=== PATIENT | male | born 1960 | race Caucasian/White ===

== ENCOUNTER 2022-11-03 11:29 | Emergency (ER) | payer MEDICARE, OTHER ==
[~2022-11-03] VITALS: Ht 152.4 cm; Wt 38.0 kg
[2022-11-03 11:37] VITALS: BP 108/87
[2022-11-03] MEDS ORDERED: ACET-1 PO (13:04)
--- NOTE | 2022-11-03 13:11 | NUR ---
Patient is at baseline, non-verbal, caregiver seeking to refill Rx for patient.
== END 2022-11-03 13:29 | disposition home or self-care (01) ==
LOC: ER 11:30
DX: R56.9 Unspecified convulsions (principal); Z76.0 Encounter for issue of repeat prescription
CPT/HCPCS: 99281

== ENCOUNTER 2022-12-19 19:36 | Emergency (ER) | payer MEDICARE, MEDICAID ==
[~2022-12-19] VITALS: Ht 167.6 cm; Wt 50.0 kg
[~2022-12-19 19:36] MED LIST: ACET-1 PO
[2022-12-19 20:07] LABS: BASOPHILS % (AUTO) 0.2 % (0-1); EOSINOPHILS # (AUTO) 0.2 X10'3 (0-0.9); EOSINOPHILS % (AUTO) 2.2 % (0-6); HEMOGLOBIN 13.6 g/dl (14.0-17.9); LYMPHOCYTES # (AUTO) 1.3 X10'3 (1.1-4.8); LYMPHOCYTES % (AUTO) 16.1 % (21-51); MEAN CORPUSCULAR HEMOGLOBIN 29.9 PG (27.0-31.0); MEAN CORPUSCULAR HGB CONC 33.2 g/dL (33.0-36.5); MEAN CORPUSCULAR VOLUME 90.2 FL (78-98); MEAN PLATELET VOLUME 9.8 FL (7.4-10.4); MONOCYTES # (AUTO) 1.1 X10'3 (0-0.9); MONOCYTES % (AUTO) 14.1 % (2-12); NEUTROPHILS # (AUTO) 5.4 X10'3 (1.8-7.7); NEUTROPHILS % (AUTO) 67.4 % (42-75); PLATELET COUNT 242 X10'3 (140-440); RED BLOOD COUNT 4.55 X10'6 (4.70-6.10); RED CELL DISTRIBUTION WIDTH 13.9 % (11.5-14.5); WHITE BLOOD COUNT 8.1 X10'3 (4.5-11.0)
[2022-12-19 20:28] LABS: ALANINE AMINOTRANSFERASE 24 U/L (12-78); ALBUMIN 3.7 G/DL (3.4-5.0); ALBUMIN/GLOBULIN RATIO 0.8 (1.1-1.5); ALKALINE PHOSPHATASE 82 IU/L (46-116); ANION GAP 8 (8-16); ASPARTATE AMINO TRANSFERASE 20 U/L (10-37); BILIRUBIN,TOTAL 0.2 MG/DL (0.1-1.0); BLOOD UREA NITROGEN 17 MG/DL (7-18); BUN/CREATININE RATIO 25.8 (5.4-32.0); CALCIUM 9.5 MG/DL (8.5-10.1); CHLORIDE 103 MMOL/L (99-107); CREATININE 0.66 MG/DL (0.60-1.10); GLUCOSE 144 MG/DL (70-104); POTASSIUM 4.1 MMOL/L (3.5-5.1); SODIUM 143 MMOL/L (135-145); TOTAL CARBON DIOXIDE 32.5 MMOL/L (24-32); TOTAL PROTEIN 8.3 G/DL (6.4-8.2); eGFR > 90 ML/MIN
[2022-12-19 21:52] VITALS: BP 107/78
== END 2022-12-19 22:40 | disposition home or self-care (01) ==
LOC: ER 19:36
DX: Z00.00 Encounter for general adult medical examination without abnormal findings (principal); Z79.899 Other long term (current) drug therapy
CPT/HCPCS: 36415; 71045; 80053; 83605; 83880; 84484; 85025; 87040; 93005; 99285; A4615

== ENCOUNTER 2023-08-09 09:54 | Emergency (ER) | payer MEDICARE, MEDICAID ==
[~2023-08-09] VITALS: Ht 162.6 cm; Wt 42.0 kg
[~2023-08-09 09:54] MED LIST changes: -ACET-1 PO; +APIX5TAB3 PO; +BACL10TA2 PO; +LEVE100S PO; +LEVO750T68 PO; +METR-159 PO; +MIRT7.5T11 PO; +POLY119P2 PO; +POTA10CA85 PO
[2023-08-09] MEDS ORDERED: normal saline 1000ML IV soln IV ONE (10:10)
[2023-08-09 10:55] LABS: BASOPHILS % (AUTO) 0.4 % (0-1); EOSINOPHILS # (AUTO) 0.2 X10'3 (0-0.9); EOSINOPHILS % (AUTO) 1.9 % (0-6); HEMATOCRIT 40.1 % (42.0-52.0); HEMOGLOBIN 13.3 g/dl (14.0-17.9); LYMPHOCYTES # (AUTO) 1.3 X10'3 (1.1-4.8); LYMPHOCYTES % (AUTO) 14.6 % (21-51); MEAN CORPUSCULAR HEMOGLOBIN 30.4 PG (27.0-31.0); MEAN CORPUSCULAR HGB CONC 33.3 g/dL (33.0-36.5); MEAN CORPUSCULAR VOLUME 91.5 FL (78-98); MEAN PLATELET VOLUME 10.6 FL (7.4-10.4); MONOCYTES # (AUTO) 1.1 X10'3 (0-0.9); MONOCYTES % (AUTO) 12.1 % (2-12); NEUTROPHILS # (AUTO) 6.6 X10'3 (1.8-7.7); PLATELET COUNT 181 X10'3 (140-440); RED BLOOD COUNT 4.38 X10'6 (4.70-6.10); RED CELL DISTRIBUTION WIDTH 13.8 % (11.5-14.5); WHITE BLOOD COUNT 9.2 X10'3 (4.5-11.0)
[2023-08-09 11:17] LABS: ALANINE AMINOTRANSFERASE 22 U/L (12-78); ALBUMIN 3.3 G/DL (3.4-5.0); ALBUMIN/GLOBULIN RATIO 0.7 (1.1-1.5); ALKALINE PHOSPHATASE 66 IU/L (46-116); ASPARTATE AMINO TRANSFERASE 28 U/L (10-37); BILIRUBIN,TOTAL 0.3 MG/DL (0.1-1.0); CALCIUM 9.7 MG/DL (8.5-10.1); MAGNESIUM 2.4 MG/DL (1.5-2.4); TOTAL CARBON DIOXIDE 31.1 MMOL/L (24-32); TOTAL PROTEIN 7.8 G/DL (6.4-8.2)
[2023-08-09 11:24] LABS: ANION GAP 7 (8-16); BLOOD UREA NITROGEN 7 MG/DL (7-18); CHLORIDE 104 MMOL/L (99-107); CREATININE 0.54 MG/DL (0.60-1.10); GLUCOSE 94 MG/DL (70-104); POTASSIUM 3.6 MMOL/L (3.5-5.1); SODIUM 142 MMOL/L (135-145); eCRCL 86 ML/MIN; eGFR > 90 ML/MIN
--- NOTE | 2023-08-09 11:51 | NUR ---
ns #1 liter completed infusion #2 infusing via pressure bag
[2023-08-09] MEDS ORDERED: metroNIDAZOLE-Flagyl 500mg/NS 100 ML IV STA ×2 (12:07→13:33)
[2023-08-09] MEDS ORDERED: levoFLOXACIN-Levaquin 500mg/D5 100 ML IV ONE (12:10)
[2023-08-09 15:13] VITALS: BP 148/65; PULSE 78; RESP 19; TEMP 99; O2SAT 96
== END 2023-08-09 14:45 | disposition home or self-care (01) ==
LOC: ER 09:54
DX: J69.0 Pneumonitis due to inhalation of food and vomit (principal); R09.02 Hypoxemia; Z79.899 Other long term (current) drug therapy; Z79.1 Long term (current) use of non-steroidal anti-inflammatories (NSAID)
CPT/HCPCS: 36415; 71045; 80053; 83605; 83735; 84145; 85025; 87040; 93005; 96365; 96367; 99285; J1956; J3490; J7030

== ENCOUNTER 2023-10-23 15:16 | Emergency (ER) | payer MEDICARE, MEDICAID ==
[~2023-10-23] VITALS: Ht 175.3 cm; Wt 41.8 kg
[~2023-10-23 15:16] MED LIST changes: -LEVO750T68 PO; -METR-159 PO
[2023-10-23 16:07] VITALS: RESP 19
[2023-10-23 16:11] LABS: BASOPHILS % (AUTO) 0.2 % (0-1); EOSINOPHILS # (AUTO) 0.7 X10'3 (0-0.9); EOSINOPHILS % (AUTO) 6.1 % (0-6); HEMOGLOBIN 13.6 g/dl (14.0-17.9); LYMPHOCYTES # (AUTO) 1.6 X10'3 (1.1-4.8); LYMPHOCYTES % (AUTO) 14.1 % (21-51); MEAN CORPUSCULAR HEMOGLOBIN 30.4 PG (27.0-31.0); MEAN CORPUSCULAR HGB CONC 33.2 g/dL (33.0-36.5); MEAN CORPUSCULAR VOLUME 91.7 FL (78-98); MEAN PLATELET VOLUME 10.4 FL (7.4-10.4); MONOCYTES # (AUTO) 1.2 X10'3 (0-0.9); MONOCYTES % (AUTO) 10.7 % (2-12); NEUTROPHILS # (AUTO) 7.6 X10'3 (1.8-7.7); NEUTROPHILS % (AUTO) 68.9 % (42-75); PLATELET COUNT 192 X10'3 (140-440); RED BLOOD COUNT 4.47 X10'6 (4.70-6.10); RED CELL DISTRIBUTION WIDTH 13.9 % (11.5-14.5)
[2023-10-23 16:32] LABS: ALBUMIN 3.4 G/DL (3.4-5.0); ANION GAP 7 (8-16); BILIRUBIN,TOTAL 0.2 MG/DL (0.1-1.0); BLOOD UREA NITROGEN 15 MG/DL (7-18); CHLORIDE 105 MMOL/L (99-107); GLUCOSE 140 MG/DL (70-104); POTASSIUM 3.8 MMOL/L (3.5-5.1); PRO BRAIN NATRIURETIC PEPTIDE 50 PG/ML (0-125); SODIUM 142 MMOL/L (135-145); TOTAL PROTEIN 7.9 G/DL (6.4-8.2); eCRCL 93 ML/MIN; eGFR > 90 ML/MIN
[2023-10-23 16:33] LABS: ALANINE AMINOTRANSFERASE 26 U/L (12-78); ALBUMIN/GLOBULIN RATIO 0.8 (1.1-1.5); ALKALINE PHOSPHATASE 89 IU/L (46-116); ASPARTATE AMINO TRANSFERASE 20 U/L (10-37)
[2023-10-23] MEDS ORDERED: CefTRIAXone 1000mg IM Kit (w/lidocaine diluent) IM STA (17:58)
[2023-10-23] MEDS ORDERED: AZIT-164 PO (18:23)
[2023-10-23 18:37] VITALS: BP 116/84; PULSE 89
[2023-10-23 19:01] VITALS: TEMP 98.7; O2SAT 90
== END 2023-10-23 21:46 | disposition home or self-care (01) ==
LOC: ER 15:17
DX: J18.9 Pneumonia, unspecified organism (principal); Z98.890 Other specified postprocedural states; Z79.2 Long term (current) use of antibiotics; Z79.899 Other long term (current) drug therapy; Z74.01 Bed confinement status
CPT/HCPCS: 36415; 71045; 80053; 83605; 83880; 85025; 87040; 96372; 99284; J0696

== ENCOUNTER 2024-02-11 16:16 | Emergency (ER) | payer MEDICARE, MEDICAID ==
[~2024-02-11] VITALS: Ht 162.6 cm; Wt 45.5 kg
[2024-02-11] MEDS: ipratropium/albuterol 3ml nebule NEB STA (17:09)
[2024-02-11] MEDS: ipratropium/albuterol 3ml nebule NEB ONE (17:13)
[2024-02-11 17:21] LABS: BASOPHILS # (AUTO) 0.1 X10'3 (0-0.2); BASOPHILS % (AUTO) 1.2 % (0-1); EOSINOPHILS # (AUTO) 0.5 X10'3 (0-0.9); EOSINOPHILS % (AUTO) 11.5 % (0-6); HEMATOCRIT 42.2 % (42.0-52.0); HEMOGLOBIN 14.1 g/dl (14.0-17.9); LYMPHOCYTES # (AUTO) 1.3 X10'3 (1.1-4.8); LYMPHOCYTES % (AUTO) 30.1 % (21-51); MEAN CORPUSCULAR HEMOGLOBIN 30.8 PG (27.0-31.0); MEAN CORPUSCULAR HGB CONC 33.5 g/dL (33.0-36.5); MEAN PLATELET VOLUME 10.6 FL (7.4-10.4); MONOCYTES # (AUTO) 0.7 X10'3 (0-0.9); MONOCYTES % (AUTO) 16.5 % (2-12); NEUTROPHILS # (AUTO) 1.8 X10'3 (1.8-7.7); NEUTROPHILS % (AUTO) 40.7 % (42-75); PLATELET COUNT 159 X10'3 (140-440); RED BLOOD COUNT 4.58 X10'6 (4.70-6.10); RED CELL DISTRIBUTION WIDTH 13.6 % (11.5-14.5); WHITE BLOOD COUNT 4.4 X10'3 (4.5-11.0)
[2024-02-11] MEDS: methylPREDNISolone sod succ 125mg/2ml vial IV ONE (17:23)
[2024-02-11 17:32] LABS: APTT 27 SECONDS (22-32); PROTHROMBIN TIME 10.5 SECONDS (9.0-12.0)
[2024-02-11 17:40] VITALS: PULSE 98; RESP 20
[2024-02-11 17:41] LABS: ALBUMIN 3.6 G/DL (3.4-5.0); ANION GAP 9 (8-16); BLOOD UREA NITROGEN 13 MG/DL (7-18); BUN/CREATININE RATIO 20.6 (10.0-20.0); CALCIUM 9.2 MG/DL (8.5-10.1); CHLORIDE 105 MMOL/L (99-107); CREATININE 0.63 MG/DL (0.60-1.10); GLUCOSE 133 MG/DL (70-104); PRO BRAIN NATRIURETIC PEPTIDE 56 PG/ML (0-125); SODIUM 143 MMOL/L (135-145); TOTAL CARBON DIOXIDE 29.5 MMOL/L (24-32); eCRCL 79 ML/MIN; eGFR > 90 ML/MIN
[2024-02-11 17:46] LABS: PLATELET ESTIMATE NORMAL; STOMATOCYTES FEW; TOTAL CELLS COUNTED 100
[2024-02-11 17:47] LABS: BURR CELLS FEW
[2024-02-12] MEDS ORDERED: ALBU8HFA INH (02:27)
[2024-02-12] MEDS ORDERED: PRED15SO71 PO (02:27)
[2024-02-12] MEDS ORDERED: AMOX400S76 PO (02:27)
[2024-02-12] MEDS: amox tr/potassium clavulanate 500mg/125mg TAB PO SCH ×2 (02:32→02:43)
[2024-02-12] MEDS: methylPREDNISolone sod succ 125mg/2ml vial IV ONE (02:46)
[2024-02-12 03:09] VITALS: BP 128/79; PULSE 81; RESP 15; TEMP 97.8; O2SAT 96
[2024-02-12] MEDS ORDERED: FLUT15.87 NAS (11:43)
[2024-02-12] MEDS ORDERED: DIPH25TA62 PO (11:48)
[2024-02-14] MEDS ORDERED: AMOX250S62 PO (11:21)
== END 2024-02-12 03:30 | disposition home or self-care (01) ==
LOC: ER 16:16
DX: J98.01 Acute bronchospasm (principal); R05.9 Cough, unspecified; Z79.2 Long term (current) use of antibiotics; Z79.1 Long term (current) use of non-steroidal anti-inflammatories (NSAID); Z79.899 Other long term (current) drug therapy
CPT/HCPCS: 36415; 71045; 80048; 83880; 84484; 85007; 85025; 85610; 85730; 87040; 87077; 87186; 93005; 94640; 94760; 96374; 96376; 99285; C1758; J2930

== ENCOUNTER 2024-02-14 20:51 | Inpatient (IN) | payer MEDICARE, MEDICAID ==
[~2024-02-14] VITALS: Ht 167.6 cm; Wt 42.9 kg
[~2024-02-14 20:51] MED LIST changes: +AMOX250S62 PO; +DIPH25TA62 PO; +FLUT15.87 NAS
[2024-02-14 21:32] LABS: BASOPHILS % (AUTO) 0.2 % (0-1); EOSINOPHILS % (AUTO) 0.2 % (0-6); HEMOGLOBIN 13.4 g/dl (14.0-17.9); LYMPHOCYTES # (AUTO) 0.8 X10'3 (1.1-4.8); LYMPHOCYTES % (AUTO) 4.9 % (21-51); MEAN CORPUSCULAR HEMOGLOBIN 30.4 PG (27.0-31.0); MEAN CORPUSCULAR HGB CONC 33.5 g/dL (33.0-36.5); MEAN CORPUSCULAR VOLUME 90.7 FL (78-98); MEAN PLATELET VOLUME 10.8 FL (7.4-10.4); MONOCYTES # (AUTO) 1.4 X10'3 (0-0.9); MONOCYTES % (AUTO) 8.5 % (2-12); NEUTROPHILS # (AUTO) 14.5 X10'3 (1.8-7.7); NEUTROPHILS % (AUTO) 86.2 % (42-75); PLATELET COUNT 173 X10'3 (140-440); RED BLOOD COUNT 4.41 X10'6 (4.70-6.10); RED CELL DISTRIBUTION WIDTH 13.8 % (11.5-14.5); WHITE BLOOD COUNT 16.8 X10'3 (4.5-11.0)
[2024-02-14] MEDS: normal saline 1000ML IV soln IV ONE (21:35)
[2024-02-14] MEDS: ondansetron/PF 4mg/2ml inj IV ONE (21:52)
[2024-02-14] MEDS: levoFLOXACIN-Levaquin 750MG/D5 150 ML IV ONE (21:52)
[2024-02-14] MEDS ORDERED: iohexol 350MG/ML 100ml bottle IV ONE (22:17)
[2024-02-14] MEDS: LORazepam 2 mg/ml vial IV ONE (22:43)
[2024-02-14 23:46] LABS: ALBUMIN 3.6 G/DL (3.4-5.0); ANION GAP 9 (8-16); BLOOD UREA NITROGEN 12 MG/DL (7-18); BUN/CREATININE RATIO 17.1 (10.0-20.0); CHLORIDE 106 MMOL/L (99-107); GLUCOSE 238 MG/DL (70-104); LARGE PLATELETS FEW; MAGNESIUM 1.8 MG/DL (1.5-2.4); PLATELET ESTIMATE NORMAL; POTASSIUM 3.5 MMOL/L (3.5-5.1); SODIUM 144 MMOL/L (135-145); TOTAL CARBON DIOXIDE 28.7 MMOL/L (24-32); eCRCL 67 ML/MIN; eGFR > 90 ML/MIN
[2024-02-15] MEDS: piperacillin/tazo 3.375gm/50ml 50 ML IV ONE (00:09)
[2024-02-15] MEDS: vancomycin/NS 1 GM ADD-VANTAGE 250 ML X 1 DOSE IV ONE (00:09)
[2024-02-15] MEDS ORDERED: ALB0.5UD (03:12)
[2024-02-15] MEDS ORDERED: PRED15SO6 PO (03:12)
[2024-02-15] MEDS ORDERED: potassium Cl 40MEQ/1/2NS 520ml 520 ML IV PRN (04:05)
[2024-02-15] MEDS ORDERED: magnesium Cl slow-release 64mg tablet PO PRN (04:05)
[2024-02-15] MEDS ORDERED: magnesium 2GM in 50ml NS 50 ML IV PRN (04:05)
[2024-02-15] MEDS ORDERED: ondansetron/PF 4mg/2ml inj IV PRN (04:05)
[2024-02-15] MEDS ORDERED: mag hydrox/Alum hydrox/simeth 30ml oral suspension PO PRN (04:05)
[2024-02-15] MEDS ORDERED: acetaminophen 325mg tablet PO PRN (04:05)
[2024-02-15] MEDS ORDERED: potassium Cl 20 mEq SR tablet PO PRN ×2 (04:05)
[2024-02-15] MEDS ORDERED: magnesium 4gm in 100ml NS 100 ML IV PRN (04:05)
[2024-02-15] MEDS ORDERED: magnesium hydroxide 30ml (MOM) UD suspension PO PRN (04:05)
[2024-02-15 06:24] LABS: BILIRUBIN,URINE NEGATIVE (Neg); CLARITY,URINE CLEAR (Clear); COLOR,URINE STRAW (Yellow); GLUCOSE, URINE NEGATIVE (Neg); KETONES,URINE NEGATIVE (Neg); LEUKOCYTE ESTERASE ,URINE NEGATIVE (Neg); NITRITES, URINE NEGATIVE (Neg); OCCULT BLOOD,URINE TRACE-INTACT (Neg); PH,URINE 7.5 (4.8-8.0); PROTEIN,URINE NEGATIVE (Neg); UROBILINOGEN,URINE 0.2 E.U/dL (0.2-1.0)
[2024-02-15 06:29] LABS: UA COLLECTION TYPE URINAL
[2024-02-15 06:30] LABS: WBC,URINE 0-4 /HPF (0-4)
[2024-02-15 06:31] LABS: BACTERIA,URINE FEW /HPF (Neg); MUCUS STRANDS NONE SEEN /LPF (Neg); SQUAMOUS EPITHELIAL CELL,UR NONE SEEN /LPF (FEW)
[2024-02-15] MEDS: K and/or MAG REPLACEMENT MC SCH (07:05)
[2024-02-15] MEDS: CefTRIAXone/D5W-Rocephin 1gm 50 ML IV SCH (07:15)
[2024-02-15] MEDS: potassium chloride 10mEq ER tablet PO SCH (08:00)
[2024-02-15] MEDS: apixaban 5mg tablet PO SCH (08:00)
[2024-02-15] MEDS: docusate sod 100mg capsule PO SCH (08:00)
[2024-02-15] MEDS: levetiracetam 100mg/ml oral solution 5ml UD cup PO SCH (08:00)
[2024-02-15] MEDS: baclofen 10mg tablet PO SCH (08:00)
[2024-02-15] MEDS: fluticasone nasal spray 16GM bottle NS SCH (08:00)
[2024-02-15] MEDS: polyethylene glycol 3350 17gm powd pack PO SCH (08:00)
[2024-02-15] MEDS: azithromycin/NS 500mg/250ml 250 ML IV SCH (08:50)
[2024-02-15 16:43] VITALS: BP 151/87; PULSE 77; RESP 18; TEMP 97.9; O2SAT 91
[2024-02-15 17:29] VITALS: RESP 18
[2024-02-15 19:19] VITALS: RESP 20
[2024-02-15 19:27] VITALS: O2SAT 91
[2024-02-15] MEDS: mirtazapine 15mg tablet PO SCH (20:18)
[2024-02-16] VITALS (7 sets, daily range): BP systolic 101–128; BP diastolic 60–79; PULSE 75–98; RESP 14–18; TEMP 97.4–98.4; O2SAT 90–98
[2024-02-16] MEDS: morphine 2 MG/ML inj. syringe IV PRN (01:37)
[2024-02-16 06:35] LABS: BASOPHILS % (AUTO) 0.7 % (0-1); EOSINOPHILS # (AUTO) 0.8 X10'3 (0-0.9); EOSINOPHILS % (AUTO) 12.1 % (0-6); HEMATOCRIT 36.7 % (42.0-52.0); HEMOGLOBIN 12.3 g/dl (14.0-17.9); LYMPHOCYTES % (AUTO) 30.1 % (21-51); MEAN CORPUSCULAR HEMOGLOBIN 30.7 PG (27.0-31.0); MEAN CORPUSCULAR HGB CONC 33.5 g/dL (33.0-36.5); MEAN CORPUSCULAR VOLUME 91.6 FL (78-98); MEAN PLATELET VOLUME 10.2 FL (7.4-10.4); MONOCYTES # (AUTO) 0.9 X10'3 (0-0.9); MONOCYTES % (AUTO) 12.8 % (2-12); NEUTROPHILS % (AUTO) 44.3 % (42-75); PLATELET COUNT 152 X10'3 (140-440); RED BLOOD COUNT 4.01 X10'6 (4.70-6.10); RED CELL DISTRIBUTION WIDTH 13.5 % (11.5-14.5); WHITE BLOOD COUNT 6.7 X10'3 (4.5-11.0)
[2024-02-16 06:51] LABS: ALANINE AMINOTRANSFERASE 19 U/L (12-78); ALBUMIN 2.9 G/DL (3.4-5.0); ALBUMIN/GLOBULIN RATIO 0.7 (1.1-1.5); ALKALINE PHOSPHATASE 51 IU/L (46-116); ANION GAP 4 (8-16); ASPARTATE AMINO TRANSFERASE 16 U/L (10-37); BILIRUBIN,TOTAL 0.3 MG/DL (0.1-1.0); BLOOD UREA NITROGEN 16 MG/DL (7-18); BUN/CREATININE RATIO 31.4 (10.0-20.0); CALCIUM 8.8 MG/DL (8.5-10.1); CHLORIDE 107 MMOL/L (99-107); CREATININE 0.51 MG/DL (0.60-1.10); GLUCOSE 86 MG/DL (70-104); MAGNESIUM 2.1 MG/DL (1.5-2.4); POTASSIUM 3.8 MMOL/L (3.5-5.1); SODIUM 144 MMOL/L (135-145); TOTAL PROTEIN 6.8 G/DL (6.4-8.2); eCRCL 92 ML/MIN; eGFR > 90 ML/MIN
[2024-02-16] MEDS: lactose-reduced food (Ensure Enlive) - 237ml bottle PO SCH (13:05)
[2024-02-16 23:33] LABS: OCCULT BLOOD STOOL NEGATIVE (Neg)
[2024-02-17 06:30] VITALS: BP 135/75; PULSE 77; RESP 16; TEMP 98.6; O2SAT 90
[2024-02-17] MEDS: docusate sodium 100mg/10ml UD cup PO SCH (07:07)
[2024-02-17 07:33] LABS: BASOPHILS % (AUTO) 0.3 % (0-1); EOSINOPHILS # (AUTO) 0.6 X10'3 (0-0.9); HEMATOCRIT 38.5 % (42.0-52.0); LYMPHOCYTES # (AUTO) 1.7 X10'3 (1.1-4.8); LYMPHOCYTES % (AUTO) 17.8 % (21-51); MEAN CORPUSCULAR HEMOGLOBIN 30.9 PG (27.0-31.0); MEAN CORPUSCULAR HGB CONC 33.8 g/dL (33.0-36.5); MEAN CORPUSCULAR VOLUME 91.4 FL (78-98); MEAN PLATELET VOLUME 10.5 FL (7.4-10.4); MONOCYTES % (AUTO) 10.5 % (2-12); NEUTROPHILS # (AUTO) 6.1 X10'3 (1.8-7.7); NEUTROPHILS % (AUTO) 65.4 % (42-75); PLATELET COUNT 168 X10'3 (140-440); RED BLOOD COUNT 4.21 X10'6 (4.70-6.10); RED CELL DISTRIBUTION WIDTH 13.8 % (11.5-14.5); WHITE BLOOD COUNT 9.3 X10'3 (4.5-11.0)
[2024-02-17 07:53] LABS: ALANINE AMINOTRANSFERASE 16 U/L (12-78); ALBUMIN 3.1 G/DL (3.4-5.0); ALBUMIN/GLOBULIN RATIO 0.8 (1.1-1.5); ALKALINE PHOSPHATASE 64 IU/L (46-116); ANION GAP 6 (8-16); ASPARTATE AMINO TRANSFERASE 12 U/L (10-37); BILIRUBIN,TOTAL 0.4 MG/DL (0.1-1.0); BLOOD UREA NITROGEN 8 MG/DL (7-18); BUN/CREATININE RATIO 17.4 (10.0-20.0); CALCIUM 8.7 MG/DL (8.5-10.1); CHLORIDE 103 MMOL/L (99-107); CREATININE 0.46 MG/DL (0.60-1.10); GLUCOSE 87 MG/DL (70-104); MAGNESIUM 2.1 MG/DL (1.5-2.4); POTASSIUM 3.8 MMOL/L (3.5-5.1); SODIUM 140 MMOL/L (135-145); TOTAL CARBON DIOXIDE 31.4 MMOL/L (24-32); TOTAL PROTEIN 7.2 G/DL (6.4-8.2); eCRCL 102 ML/MIN; eGFR > 90 ML/MIN
[2024-02-17 08:00] VITALS: RESP 16; O2SAT 90
[2024-02-17 10:00] VITALS: BP 150/79; PULSE 83; RESP 16; TEMP 97.9; O2SAT 97
[2024-02-17 18:00] VITALS: BP 131/77; PULSE 74; RESP 15; TEMP 98.7; O2SAT 95
[2024-02-17 22:00] VITALS: BP 140/82; PULSE 66; RESP 16; TEMP 98.1; O2SAT 95
[2024-02-18 06:00] VITALS: BP 135/83; PULSE 69; RESP 16; TEMP 97.6
[2024-02-18 07:13] LABS: BASOPHILS % (AUTO) 0.5 % (0-1); LYMPHOCYTES # (AUTO) 1.4 X10'3 (1.1-4.8); NEUTROPHILS # (AUTO) 2.9 X10'3 (1.8-7.7)
[2024-02-18 07:15] LABS: EOSINOPHILS # (AUTO) 0.6 X10'3 (0-0.9); EOSINOPHILS % (AUTO) 9.8 % (0-6); HEMATOCRIT 41.8 % (42.0-52.0); HEMOGLOBIN 13.9 g/dl (14.0-17.9); LYMPHOCYTES % (AUTO) 24.6 % (21-51); MEAN CORPUSCULAR HEMOGLOBIN 30.6 PG (27.0-31.0); MEAN CORPUSCULAR HGB CONC 33.3 g/dL (33.0-36.5); MEAN CORPUSCULAR VOLUME 91.9 FL (78-98); MONOCYTES # (AUTO) 0.8 X10'3 (0-0.9); MONOCYTES % (AUTO) 14.2 % (2-12); NEUTROPHILS % (AUTO) 50.9 % (42-75); PLATELET COUNT 186 X10'3 (140-440); RED BLOOD COUNT 4.55 X10'6 (4.70-6.10); RED CELL DISTRIBUTION WIDTH 13.7 % (11.5-14.5); WHITE BLOOD COUNT 5.7 X10'3 (4.5-11.0)
[2024-02-18 07:23] LABS: ALANINE AMINOTRANSFERASE 17 U/L (12-78); ALBUMIN 3.3 G/DL (3.4-5.0); ALBUMIN/GLOBULIN RATIO 0.8 (1.1-1.5); ALKALINE PHOSPHATASE 69 IU/L (46-116); ANION GAP 4 (8-16); ASPARTATE AMINO TRANSFERASE 13 U/L (10-37); BILIRUBIN,TOTAL 0.4 MG/DL (0.1-1.0); BLOOD UREA NITROGEN 12 MG/DL (7-18); BUN/CREATININE RATIO 22.2 (10.0-20.0); CALCIUM 9.1 MG/DL (8.5-10.1); CHLORIDE 105 MMOL/L (99-107); CREATININE 0.54 MG/DL (0.60-1.10); GLUCOSE 87 MG/DL (70-104); MAGNESIUM 2.3 MG/DL (1.5-2.4); POTASSIUM 4.2 MMOL/L (3.5-5.1); SODIUM 143 MMOL/L (135-145); TOTAL CARBON DIOXIDE 34.2 MMOL/L (24-32); TOTAL PROTEIN 7.7 G/DL (6.4-8.2); eCRCL 87 ML/MIN; eGFR > 90 ML/MIN
[2024-02-18 07:41] LABS: LARGE PLATELETS FEW; PLATELET ESTIMATE NORMAL
[2024-02-18 08:30] VITALS: RESP 18; O2SAT 91
[2024-02-18 10:00] VITALS: BP 132/95; PULSE 80; RESP 16; TEMP 98.2; O2SAT 92
[2024-02-18 18:00] VITALS: BP 112/64; PULSE 62; RESP 14; TEMP 97.9; O2SAT 90
[2024-02-18 20:09] VITALS: RESP 18; O2SAT 90
[2024-02-18 22:01] VITALS: BP 116/72; PULSE 74; RESP 17; TEMP 98.1; O2SAT 90
[2024-02-19 06:00] VITALS: BP 114/72; PULSE 74; RESP 16; TEMP 97.9; O2SAT 90
[2024-02-19 07:04] LABS: BASOPHILS % (AUTO) 0.6 % (0-1); EOSINOPHILS # (AUTO) 0.5 X10'3 (0-0.9); EOSINOPHILS % (AUTO) 7.6 % (0-6); HEMATOCRIT 40.3 % (42.0-52.0); HEMOGLOBIN 13.6 g/dl (14.0-17.9); LYMPHOCYTES # (AUTO) 1.7 X10'3 (1.1-4.8); LYMPHOCYTES % (AUTO) 29.2 % (21-51); MEAN CORPUSCULAR HGB CONC 33.8 g/dL (33.0-36.5); MEAN CORPUSCULAR VOLUME 91.8 FL (78-98); MEAN PLATELET VOLUME 9.7 FL (7.4-10.4); MONOCYTES # (AUTO) 0.7 X10'3 (0-0.9); MONOCYTES % (AUTO) 12.5 % (2-12); NEUTROPHILS % (AUTO) 50.1 % (42-75); PLATELET COUNT 182 X10'3 (140-440); RED BLOOD COUNT 4.39 X10'6 (4.70-6.10)
[2024-02-19 07:21] LABS: ALANINE AMINOTRANSFERASE 15 U/L (12-78); ALBUMIN 3.1 G/DL (3.4-5.0); ALBUMIN/GLOBULIN RATIO 0.7 (1.1-1.5); ALKALINE PHOSPHATASE 67 IU/L (46-116); ANION GAP 6 (8-16); ASPARTATE AMINO TRANSFERASE 8 U/L (10-37); BILIRUBIN,TOTAL 0.3 MG/DL (0.1-1.0); BLOOD UREA NITROGEN 14 MG/DL (7-18); CALCIUM 9.1 MG/DL (8.5-10.1); CHLORIDE 105 MMOL/L (99-107); GLUCOSE 89 MG/DL (70-104); MAGNESIUM 2.2 MG/DL (1.5-2.4); POTASSIUM 4.5 MMOL/L (3.5-5.1); SODIUM 145 MMOL/L (135-145); TOTAL CARBON DIOXIDE 33.9 MMOL/L (24-32); TOTAL PROTEIN 7.6 G/DL (6.4-8.2); eCRCL 94 ML/MIN; eGFR > 90 ML/MIN
[2024-02-19 08:00] VITALS: RESP 16; O2SAT 90
[2024-02-19 11:00] VITALS: BP 107/72; PULSE 92; RESP 17; TEMP 97.4; O2SAT 92
[2024-02-19 18:50] VITALS: BP 122/83; PULSE 80; RESP 16; TEMP 97.1; O2SAT 92
[2024-02-19 20:00] VITALS: RESP 16; O2SAT 92
[2024-02-19 22:00] VITALS: BP 122/83; PULSE 94; RESP 16; TEMP 97.7; O2SAT 92
[2024-02-20 06:00] VITALS: BP 136/81; PULSE 57; RESP 16; TEMP 97; O2SAT 96
[2024-02-20 08:00] VITALS: RESP 16; O2SAT 96
[2024-02-20] MEDS: azithromycin 250mg tablet PO SCH (08:00)
[2024-02-20] MEDS: POTASSIUM BICARBONATE/CIT AC 10 MEQ TABLET.EFF PO SCH (08:07)
[2024-02-20 08:46] LABS: BASOPHILS % (AUTO) 0.9 % (0-1); EOSINOPHILS # (AUTO) 0.5 X10'3 (0-0.9); EOSINOPHILS % (AUTO) 8.7 % (0-6); HEMATOCRIT 40.1 % (42.0-52.0); HEMOGLOBIN 13.1 g/dl (14.0-17.9); LYMPHOCYTES # (AUTO) 1.6 X10'3 (1.1-4.8); LYMPHOCYTES % (AUTO) 30.1 % (21-51); MEAN CORPUSCULAR HGB CONC 32.5 g/dL (33.0-36.5); MEAN CORPUSCULAR VOLUME 92.3 FL (78-98); MEAN PLATELET VOLUME 10.5 FL (7.4-10.4); MONOCYTES # (AUTO) 0.7 X10'3 (0-0.9); MONOCYTES % (AUTO) 13.7 % (2-12); NEUTROPHILS # (AUTO) 2.5 X10'3 (1.8-7.7); NEUTROPHILS % (AUTO) 46.6 % (42-75); PLATELET COUNT 190 X10'3 (140-440); RED BLOOD COUNT 4.35 X10'6 (4.70-6.10); RED CELL DISTRIBUTION WIDTH 13.9 % (11.5-14.5); WHITE BLOOD COUNT 5.3 X10'3 (4.5-11.0)
[2024-02-20 09:04] LABS: ALBUMIN/GLOBULIN RATIO 0.7 (1.1-1.5); ANION GAP 7 (8-16); ASPARTATE AMINO TRANSFERASE 14 U/L (10-37); BILIRUBIN,TOTAL 0.2 MG/DL (0.1-1.0); BLOOD UREA NITROGEN 16 MG/DL (7-18); CALCIUM 9.1 MG/DL (8.5-10.1); CHLORIDE 106 MMOL/L (99-107); GLUCOSE 94 MG/DL (70-104); SODIUM 144 MMOL/L (135-145); TOTAL CARBON DIOXIDE 31.1 MMOL/L (24-32); TOTAL PROTEIN 7.2 G/DL (6.4-8.2); eCRCL 94 ML/MIN; eGFR > 90 ML/MIN
[2024-02-20 09:05] LABS: ALANINE AMINOTRANSFERASE 20 U/L (12-78); ALKALINE PHOSPHATASE 58 IU/L (46-116)
[2024-02-20 10:00] VITALS: BP 128/78; PULSE 71; RESP 11; TEMP 97.8; O2SAT 92
== END 2024-02-20 18:35 | disposition home or self-care (01) | DRG 871 ==
LOC: ER 20:52 → ED HOLD 02-15 04:16 → EDBEDREQ 02-15 14:40 → ORTHO 4S 02-15 16:10
PROVIDERS: ADMIT Internal Medicine Critical Care Medicine; ATTEND Family Medicine
PROC: B32T1ZZ Computerized Tomography (CT Scan) of Left Pulmonary Artery using Low Osmolar Contrast (ICD-10-PCS; principal; 2024-02-15)
PROC: B3201ZZ Computerized Tomography (CT Scan) of Thoracic Aorta using Low Osmolar Contrast (ICD-10-PCS; 2024-02-15)
PROC: B32S1ZZ Computerized Tomography (CT Scan) of Right Pulmonary Artery using Low Osmolar Contrast (ICD-10-PCS; 2024-02-15)
DX: A41.9 Sepsis, unspecified organism (principal); J18.9 Pneumonia, unspecified organism; J96.01 Acute respiratory failure with hypoxia; Z66 Do not resuscitate; T38.0X5A Adverse effect of glucocorticoids and synthetic analogues, initial encounter; J98.4 Other disorders of lung; I48.91 Unspecified atrial fibrillation; G80.9 Cerebral palsy, unspecified; F20.9 Schizophrenia, unspecified; D64.9 Anemia, unspecified; R73.9 Hyperglycemia, unspecified; R91.1 Solitary pulmonary nodule; Y92.89 Other specified places as the place of occurrence of the external cause; Z79.899 Other long term (current) drug therapy
CPT/HCPCS: 36415; 71045; 71275; 80048; 80053; 81001; 82272; 83605; 83735; 83880; 84145; 84484; 85007; 85008; 85025; 85610; 85730; 87040; 87077; 87081; 87186; 92508; 92616; 93005; 94640; 94760; 96365; 96367; 96374; 96375; 96376; 99285; A4349; A4615; A6212; A6213; A6449; A6590; C1758; G0378; J0456; J0696; J1953; J1956; J2060; J2270; J2405; J2543; J2930; J3370; J3480; J3490; J7030; J7040; Q9967

== ENCOUNTER 2024-02-29 16:03 | Emergency (ER) | payer MEDICARE, MEDICAID ==
[~2024-02-29] VITALS: Ht 170.2 cm; Wt 47.7 kg
[~2024-02-29 16:03] MED LIST changes: +ALB0.5UD; -AMOX250S62 PO; -DIPH25TA62 PO; -POTA10CA85 PO
[2024-02-29] MEDS: piperacillin/tazo 3.375gm/50ml 50 ML IV ONE (17:01)
[2024-02-29 17:19] LABS: BASOPHILS # (AUTO) 0.1 X10'3 (0-0.2); BASOPHILS % (AUTO) 0.8 % (0-1); EOSINOPHILS # (AUTO) 0.9 X10'3 (0-0.9); LYMPHOCYTES # (AUTO) 1.1 X10'3 (1.1-4.8)
[2024-02-29 17:22] LABS: EOSINOPHILS % (AUTO) 12.9 % (0-6); HEMATOCRIT 39.7 % (42.0-52.0); HEMOGLOBIN 13.2 g/dl (14.0-17.9); MEAN CORPUSCULAR HGB CONC 33.3 g/dL (33.0-36.5); MEAN CORPUSCULAR VOLUME 93.3 FL (78-98); MEAN PLATELET VOLUME 10.5 FL (7.4-10.4); MONOCYTES % (AUTO) 14.2 % (2-12); NEUTROPHILS % (AUTO) 56.1 % (42-75); PLATELET COUNT 182 X10'3 (140-440); RED BLOOD COUNT 4.25 X10'6 (4.70-6.10); RED CELL DISTRIBUTION WIDTH 13.9 % (11.5-14.5); WHITE BLOOD COUNT 7.2 X10'3 (4.5-11.0)
[2024-02-29 17:29] LABS: ALBUMIN 3.6 G/DL (3.4-5.0); ANION GAP 7 (8-16); BLOOD UREA NITROGEN 16 MG/DL (7-18); BUN/CREATININE RATIO 28.1 (10.0-20.0); CALCIUM 8.8 MG/DL (8.5-10.1); CHLORIDE 108 MMOL/L (99-107); CREATININE 0.57 MG/DL (0.60-1.10); GLUCOSE 115 MG/DL (70-104); POTASSIUM 4.1 MMOL/L (3.5-5.1); PRO BRAIN NATRIURETIC PEPTIDE 43 PG/ML (0-125); SODIUM 145 MMOL/L (135-145); TOTAL CARBON DIOXIDE 30.3 MMOL/L (24-32); eCRCL 92 ML/MIN; eGFR > 90 ML/MIN
[2024-02-29 20:41] LABS: LARGE PLATELETS FEW; PLATELET ESTIMATE NORMAL
[2024-02-29 21:50] VITALS: BP 107/84; PULSE 77; RESP 20; TEMP 98.5; O2SAT 99
[2024-03-01] MEDS ORDERED: ALB0.5UD IH (14:59)
[2024-03-01] MEDS ORDERED: PRED20TA PO (14:59)
[2024-03-01] MEDS ORDERED: ALBU18HF2 INH (14:59)
== END 2024-02-29 21:54 | disposition home or self-care (01) ==
LOC: ER 16:04
DX: R05.9 Cough, unspecified (principal); Z20.822 Contact with and (suspected) exposure to COVID-19; Z79.899 Other long term (current) drug therapy; Z79.1 Long term (current) use of non-steroidal anti-inflammatories (NSAID)
CPT/HCPCS: 36415; 71045; 80048; 83605; 83880; 85008; 85025; 87040; 87502; 87503; 87811; 93005; 96365; 99285; J2543; A4615

== ENCOUNTER 2024-03-01 11:06 | Emergency (ER) | payer MEDICARE, MEDICAID ==
[~2024-03-01] VITALS: Ht 172.7 cm; Wt 41.0 kg
[2024-03-01] MEDS: haloperidol lactate 5mg/ml inj IM ONE (11:54)
[2024-03-01] MEDS: diphenhydrAMINE 50 mg/ml inj IM ONE (11:54)
[2024-03-01 12:17] LABS: BASOPHILS % (AUTO) 0.5 % (0-1); EOSINOPHILS # (AUTO) 0.2 X10'3 (0-0.9); EOSINOPHILS % (AUTO) 2.4 % (0-6); HEMATOCRIT 40.4 % (42.0-52.0); HEMOGLOBIN 13.2 g/dl (14.0-17.9); LYMPHOCYTES # (AUTO) 0.4 X10'3 (1.1-4.8); LYMPHOCYTES % (AUTO) 5.7 % (21-51); MEAN CORPUSCULAR HEMOGLOBIN 30.8 PG (27.0-31.0); MEAN CORPUSCULAR HGB CONC 32.7 g/dL (33.0-36.5); MEAN CORPUSCULAR VOLUME 94.1 FL (78-98); MEAN PLATELET VOLUME 10.7 FL (7.4-10.4); MONOCYTES # (AUTO) 0.6 X10'3 (0-0.9); MONOCYTES % (AUTO) 7.5 % (2-12); NEUTROPHILS # (AUTO) 6.5 X10'3 (1.8-7.7); NEUTROPHILS % (AUTO) 83.9 % (42-75); PLATELET COUNT 166 X10'3 (140-440); RED CELL DISTRIBUTION WIDTH 14.3 % (11.5-14.5); WHITE BLOOD COUNT 7.7 X10'3 (4.5-11.0)
[2024-03-01 12:30] LABS: D-DIMER 0.39 MG/L FEU (0-0.50)
[2024-03-01 12:52] LABS: ALBUMIN 3.5 G/DL (3.4-5.0); ANION GAP 14 (8-16); BLOOD UREA NITROGEN 16 MG/DL (7-18); BUN/CREATININE RATIO 26.2 (10.0-20.0); CHLORIDE 106 MMOL/L (99-107); CREATININE 0.61 MG/DL (0.60-1.10); GLUCOSE 191 MG/DL (70-104); MAGNESIUM 2.3 MG/DL (1.5-2.4); POTASSIUM 4.1 MMOL/L (3.5-5.1); PRO BRAIN NATRIURETIC PEPTIDE 93 PG/ML (0-125); SODIUM 144 MMOL/L (135-145); TOTAL CARBON DIOXIDE 23.7 MMOL/L (24-32); eCRCL 74 ML/MIN; eGFR > 90 ML/MIN
[2024-03-01 14:12] VITALS: PULSE 115; RESP 20; O2SAT 90
[2024-03-01] MEDS: albuterol 2.5 MG/3 ML nebule NEB ONE (14:12)
[2024-03-01] MEDS: methylPREDNISolone sod succ 125mg/2ml vial IM ONE (14:12)
[2024-03-01 14:20] VITALS: PULSE 109; RESP 20; O2SAT 91
[2024-03-01] MEDS ORDERED: ALB0.5UD IH (14:59)
[2024-03-01] MEDS ORDERED: ALBU18HF2 INH (14:59)
[2024-03-01] MEDS ORDERED: PRED20TA PO (14:59)
[2024-03-01 15:09] VITALS: BP 139/77; PULSE 115; RESP 16; TEMP 97.1; O2SAT 91
== END 2024-03-01 15:23 | disposition home or self-care (01) ==
LOC: ER 11:06
DX: J45.909 Unspecified asthma, uncomplicated (principal); R09.02 Hypoxemia; R45.1 Restlessness and agitation; I48.91 Unspecified atrial fibrillation; F20.9 Schizophrenia, unspecified
CPT/HCPCS: 36415; 71045; 80048; 83735; 83880; 84484; 85025; 85379; 94640; 96372; 99284; J1200; J1630; J2930; J7030; 94760

== ENCOUNTER 2024-09-07 21:26 | Emergency (ER) | payer MEDICARE, MEDICAID ==
[~2024-09-07] VITALS: Ht 170.2 cm; Wt 46.4 kg
[~2024-09-07 21:26] MED LIST changes: +ALBU18HF2 INH
[2024-09-07 22:38] VITALS: PULSE 80; RESP 16; O2SAT 96
[2024-09-07] MEDS: ipratropium/albuterol 3ml nebule NEB ONE (22:41)
[2024-09-07] MEDS: ondansetron 4mg rapidly disintigrating tab PO ONE (22:44)
[2024-09-07 22:49] VITALS: PULSE 76; RESP 18; O2SAT 94
[2024-09-07] MEDS: bisacodyl 10mg suppository rectal RC STA (23:53)
[2024-09-08 00:55] VITALS: BP 126/74; PULSE 69; RESP 14; TEMP 99.5; O2SAT 95
== END 2024-09-08 01:00 | disposition home or self-care (01) ==
LOC: ER 21:27
DX: K59.00 Constipation, unspecified (principal); R11.10 Vomiting, unspecified; I48.91 Unspecified atrial fibrillation; F20.9 Schizophrenia, unspecified; Z98.890 Other specified postprocedural states; Z79.899 Other long term (current) drug therapy
CPT/HCPCS: 71045; 74018; 94640; 99284; A4615; Z7610; 94760

== ENCOUNTER 2024-09-19 12:27 | Day surgery (SDC) | payer MEDICARE, MEDICAID ==
[~2024-09-19] VITALS: Ht 152.4 cm; Wt 39.8 kg
[2024-09-19] MEDS ORDERED: MIRT-140 PO (13:21)
[2024-09-19] MEDS ORDERED: POTA40LI16 PO (13:23)
[2024-09-19] MEDS ORDERED: [UNRECOGNIZED DRUG - OTHER] PO (13:26)
[2024-09-19 13:28] VITALS: BP 136/82; PULSE 97; RESP 12; RESP 18
[2024-09-19] MEDS ORDERED: simethicone 40mg/0.6ml oral drops 30ml ONE (13:44)
[2024-09-19] MEDS ORDERED: propofol inj 20 ML IV ONE (14:05)
[2024-09-19 14:10] VITALS: BP 120/67; PULSE 69; RESP 12; O2SAT 100
[2024-09-19 14:20] VITALS: BP 119/69; PULSE 65; RESP 14; O2SAT 100
[2024-09-19 14:30] VITALS: BP 138/73; PULSE 70; RESP 11; O2SAT 95
[2024-09-19 14:40] VITALS: BP 125/96; PULSE 76; RESP 10; O2SAT 96
== END 2024-09-19 14:50 ==
LOC: GI LAB 12:27
PROVIDERS: ATTEND Internal Medicine Gastroenterology
DX: K92.1 Melena (principal); I48.91 Unspecified atrial fibrillation; K21.9 Gastro-esophageal reflux disease without esophagitis; F41.9 Anxiety disorder, unspecified; G40.909 Epilepsy, unspecified, not intractable, without status epilepticus; F20.9 Schizophrenia, unspecified; Z79.01 Long term (current) use of anticoagulants; Z79.899 Other long term (current) drug therapy
CPT/HCPCS: 45378; J2704; J7030; Z7512

== ENCOUNTER 2024-11-29 17:24 | Emergency (ER) | payer MEDICARE, MEDICAID ==
[~2024-11-29] VITALS: Ht 162.6 cm; Wt 38.0 kg
[~2024-11-29 17:24] MED LIST changes: -ALB0.5UD; -ALBU18HF2 INH; +AMOX-580 PO; -FLUT15.87 NAS; +MIRT-140 PO; -MIRT7.5T11 PO; +POTA40LI16 PO; +SACC250C PO; +[UNRECOGNIZED DRUG - OTHER] PO
[2024-11-29 19:36] LABS: BASOPHILS % (AUTO) 0.6 % (0-1); EOSINOPHILS # (AUTO) 0.1 X10'3 (0-0.9); EOSINOPHILS % (AUTO) 1.8 % (0-6); HEMATOCRIT 36.9 % (42.0-52.0); HEMOGLOBIN 12.3 g/dl (14.0-17.9); LYMPHOCYTES # (AUTO) 1.6 X10'3 (1.1-4.8); LYMPHOCYTES % (AUTO) 24.5 % (21-51); MEAN CORPUSCULAR HEMOGLOBIN 30.9 PG (27.0-31.0); MEAN CORPUSCULAR HGB CONC 33.3 g/dL (33.0-36.5); MEAN CORPUSCULAR VOLUME 92.8 FL (78-98); MEAN PLATELET VOLUME 8.4 FL (7.4-10.4); MONOCYTES # (AUTO) 0.9 X10'3 (0-0.9); MONOCYTES % (AUTO) 13.8 % (2-12); NEUTROPHILS # (AUTO) 3.9 X10'3 (1.8-7.7); NEUTROPHILS % (AUTO) 59.3 % (42-75); PLATELET COUNT 322 X10'3 (140-440); RED BLOOD COUNT 3.98 X10'6 (4.70-6.10); RED CELL DISTRIBUTION WIDTH 13.8 % (11.5-14.5); WHITE BLOOD COUNT 6.5 X10'3 (4.5-11.0)
[2024-11-29 19:46] LABS: ALANINE AMINOTRANSFERASE 44 U/L (12-78); ALBUMIN 2.9 G/DL (3.4-5.0); ALBUMIN/GLOBULIN RATIO 0.6 (1.1-1.5); ALKALINE PHOSPHATASE 48 IU/L (46-116); ANION GAP 5 (8-16); ASPARTATE AMINO TRANSFERASE 26 U/L (10-37); BILIRUBIN,TOTAL 0.1 MG/DL (0.1-1.0); BLOOD UREA NITROGEN 15 MG/DL (7-18); BUN/CREATININE RATIO 26.3 (10.0-20.0); CALCIUM 8.5 MG/DL (8.5-10.1); CHLORIDE 108 MMOL/L (99-107); CREATININE 0.57 MG/DL (0.60-1.10); GLUCOSE 92 MG/DL (70-104); LIPASE 42 U/L (16-77); POTASSIUM 4.3 MMOL/L (3.5-5.1); SODIUM 141 MMOL/L (135-145); TOTAL CARBON DIOXIDE 28.2 MMOL/L (24-32); TOTAL PROTEIN 7.4 G/DL (6.4-8.2); eCRCL 72 ML/MIN; eGFR > 90 ML/MIN
[2024-11-29 20:59] VITALS: PULSE 68
[2024-11-29] MEDS ORDERED: LACT10SO78 PO (21:02)
[2024-11-29 21:30] VITALS: BP 139/90; RESP 19; TEMP 98.4; O2SAT 100
== END 2024-11-29 22:51 | disposition still patient (30) ==
LOC: ER 17:25
DX: K59.00 Constipation, unspecified (principal); F20.9 Schizophrenia, unspecified; I48.91 Unspecified atrial fibrillation; Z98.890 Other specified postprocedural states; Z79.2 Long term (current) use of antibiotics
CPT/HCPCS: 36415; 74176; 80053; 83690; 85025; 99284; A6590

== ENCOUNTER 2025-01-23 09:01 | Emergency (ER) | payer MEDICARE, MEDICAID ==
[~2025-01-23] VITALS: Ht 160 cm; Wt 40.7 kg
[~2025-01-23 09:01] MED LIST changes: +LACT10SO78 PO
[2025-01-23 09:06] VITALS: TEMP 97.6
[2025-01-23 09:46] LABS: BASOPHILS # (AUTO) 0.1 X10'3 (0-0.2); BASOPHILS % (AUTO) 0.5 % (0-1); EOSINOPHILS # (AUTO) 0.1 X10'3 (0-0.9); EOSINOPHILS % (AUTO) 1.1 % (0-6); HEMATOCRIT 38.1 % (42.0-52.0); HEMOGLOBIN 12.1 g/dl (14.0-17.9); LYMPHOCYTES # (AUTO) 1.8 X10'3 (1.1-4.8); LYMPHOCYTES % (AUTO) 16.8 % (21-51); MEAN CORPUSCULAR HEMOGLOBIN 29.4 PG (27.0-31.0); MEAN CORPUSCULAR HGB CONC 31.9 g/dL (33.0-36.5); MEAN CORPUSCULAR VOLUME 92.2 FL (78-98); MEAN PLATELET VOLUME 8.2 FL (7.4-10.4); MONOCYTES # (AUTO) 0.9 X10'3 (0-0.9); MONOCYTES % (AUTO) 8.8 % (2-12); NEUTROPHILS # (AUTO) 7.6 X10'3 (1.8-7.7); NEUTROPHILS % (AUTO) 72.8 % (42-75); PLATELET COUNT 288 X10'3 (140-440); RED BLOOD COUNT 4.13 X10'6 (4.70-6.10); RED CELL DISTRIBUTION WIDTH 15.3 % (11.5-14.5); WHITE BLOOD COUNT 10.4 X10'3 (4.5-11.0)
[2025-01-23 09:57] LABS: ALANINE AMINOTRANSFERASE 17 U/L (12-78); ALBUMIN 3.1 G/DL (3.4-5.0); ALBUMIN/GLOBULIN RATIO 0.7 (1.1-1.5); ALKALINE PHOSPHATASE 60 IU/L (46-116); ANION GAP 4 (8-16); ASPARTATE AMINO TRANSFERASE 16 U/L (10-37); BILIRUBIN,TOTAL 0.2 MG/DL (0.1-1.0); BLOOD UREA NITROGEN 14 MG/DL (7-18); BUN/CREATININE RATIO 27.5 (10.0-20.0); CALCIUM 8.9 MG/DL (8.5-10.1); CHLORIDE 108 MMOL/L (99-107); CREATININE 0.51 MG/DL (0.60-1.10); GLUCOSE 88 MG/DL (70-104); LIPASE 23 U/L (16-77); POTASSIUM 3.7 MMOL/L (3.5-5.1); SODIUM 142 MMOL/L (135-145); TOTAL CARBON DIOXIDE 29.7 MMOL/L (24-32); TOTAL PROTEIN 7.8 G/DL (6.4-8.2); eCRCL 87 ML/MIN; eGFR > 90 ML/MIN
[2025-01-23 13:03] LABS: BILIRUBIN,URINE NEGATIVE (Neg); CLARITY,URINE CLOUDY (Clear); COLOR,URINE YELLOW (Yellow); GLUCOSE, URINE NEGATIVE (Neg); KETONES,URINE NEGATIVE (Neg); LEUKOCYTE ESTERASE ,URINE NEGATIVE (Neg); NITRITES, URINE NEGATIVE (Neg); OCCULT BLOOD,URINE TRACE-INTACT (Neg); PH,URINE 7.5 (4.8-8.0); PROTEIN,URINE NEGATIVE (Neg); UROBILINOGEN,URINE 0.2 E.U/dL (0.2-1.0)
[2025-01-23 13:08] LABS: UA COLLECTION TYPE NON-SPECIFIED
[2025-01-23 13:10] LABS: WBC,URINE 0-4 /HPF (0-4)
[2025-01-23 13:11] LABS: AMORPHOUS PHOSPHATES 3+; BACTERIA,URINE NONE SEEN /HPF (Neg); SQUAMOUS EPITHELIAL CELL,UR NONE SEEN /LPF (FEW)
[2025-01-23 13:56] VITALS: BP 148/95; PULSE 66; RESP 16; O2SAT 95
== END 2025-01-23 14:02 ==
LOC: ER 09:02
DX: R10.13 Epigastric pain (principal); F20.9 Schizophrenia, unspecified; I48.91 Unspecified atrial fibrillation
CPT/HCPCS: 36415; 74018; 80053; 81001; 83690; 85025; 99284; A4353; A6590

== ENCOUNTER 2025-05-05 08:17 | Emergency (ER) | payer MEDICARE, MEDICAID ==
[~2025-05-05] VITALS: Ht 162.6 cm; Wt 44.0 kg
--- NOTE | 2025-05-05 09:10 | Physician Documentation ---
History of Present Illness ~ Chief Complaint: Bloody Stools Stated Complaint: BLOOD IN STOOL Time Seen by MD: 08:53 Primary Medical Doctor: Justice MCGOVERN See 4-year-old male presents to the ED with a complaint of intermittent bloody stools. Caregiver says that patient's that has baseline, however he has noticed some blood streaks in his stool as of late. Trace amounts. Patient had a bowel movement while in the ED was visualized to have red streaks in the stool. No evidence of dark stools Day of Onset: May 05, 2025 Medication Reconciliation Allergies: Coded Allergies: No Known Allergies (Unverified , 05/05/25) Scheduled Amox Tr/Potassium Clavulanate 875/125 MG (Augmentin 875/125 MG), 1 TAB PO BID Apixaban (Eliquis), 1 TAB PO BID, (Reported) Baclofen (Baclofen), 1 TAB PO BID, (Reported) Cetirizine HCl (Cetirizine HCl), 1 TAB PO HS, (Reported) Lactulose (Lactulose), 30 ML PO Q12H Levetiracetam (Keppra), 10 ML PO Q12H, (Reported) Magnesium Hydroxide (Milk of Magnesia), 5 ML PO Q12H, (Reported) Mirtazapine (Remeron), 1 TAB PO HS, (Reported) Saccharomyces Boulardii (Florastor), 1 CAP PO Q12H Scheduled PRN Albuterol Sulfate Nebs* (Proventil Nebs*), 2.5 MG IH Q6H PRN for SOB or wheezing, (Reported) Miscellaneous Medications Guaifenesin/D-Methorphan Hb (Tussin Dm Max Liquid), 20 ML PO, (Reported) Loperamide Hcl (Loperamide), 2 MG PO, (Reported) Potassium Chloride (Potassium Chloride), 20 MEQ PO, (Reported) Scopolamine Hydrobromide (Transderm-Scop), (Reported) [meqestrol], 40 MG PO, (Reported) Discontinued Medications Polyethylene Glycol 3350 (Miralax), 17 GM PO DAILY, (Reported) Discontinued Reason: patient no longer taking Past Medical History 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 Alcohol Use: None Drug Use: none Lives with: Other Lives In: Assisted Care Occupation: disabled Review of Systems All Other Systems at this time: Reviewed and Negative ROS As stated above in the HPI, otherwise all systems are reviewed and negative. Physical Exam Vital Signs: Temperature: 97.0, Source: Temporal, Heart Rate: 104, Respiratory Rate: 16, Pulse Oximetry: 94, Weight: 44.000 Oxygen Flow Rate: 0 Physical Exam General: Alert, no apparent distress. Gastrointestinal: Soft, nontender, nondistended. Bowels sounds present. Neurologic: Oriented x4. Psychiatric: Normal mood and affect. Skin: Normal color, warm and dry. No edema, no ecchymosis. Progress Results/Orders Results/Orders Orders - FADY HERNANDEZ NP Ua W/Microscopic, Cult If Ind (05/05/25 10:10) Completed Orders - FADY HERNANDEZ NP Cbc/Diff (05/05/25 08:58) BMP (05/05/25 08:58) Lipase (05/05/25 08:58) CMP (05/05/25 08:58) Vital Signs 05/05/25 05/05/25 08:36 09:04 Temp 97.0 Pulse 104 Resp 16 21 Pulse Ox 94 O2 Flow Rate 0 Laboratory Tests Test 05/05/25 09:19 05/05/25 10:10 White Blood Count 11.2 H Red Blood Count 4.49 L Hemoglobin 13.3 L Hematocrit 40.5 L Mean Corpuscular Volume 90.1 Mean Corpuscular Hemoglobin 29.6 Mean Corpuscular Hemoglobin Concent 32.9 L Red Cell Distribution Width 15.5 H Platelet Count 210 Mean Platelet Volume 9.2 Neutrophils (%) (Auto) 72.7 Lymphocytes (%) (Auto) 15.0 L Monocytes (%) (Auto) 11.1 Eosinophils (%) (Auto) 0.8 Basophils (%) (Auto) 0.4 Neutrophils # (Auto) 8.1 H Lymphocytes # (Auto) 1.7 Monocytes # (Auto) 1.2 H Eosinophils # (Auto) 0.1 Basophils # (Auto) 0.0 CBC Comment Sodium Level 142 Potassium Level 3.8 Chloride Level 104 Carbon Dioxide Level 31.2 Anion Gap 7 L Blood Urea Nitrogen 17 Creatinine 0.76 Estimated GFR/1.73 m2 > 90 BUN/Creatinine Ratio 22.4 H Glucose Level 117 H Calcium Level 8.8 Total Bilirubin 0.3 Aspartate Amino Transf (AST/SGOT) 14 Alanine Aminotransferase (ALT/SGPT) 19 Alkaline Phosphatase 60 Total Protein 7.4 Albumin 3.2 L Globulin 4.2 Albumin/Globulin Ratio 0.8 L Lipase 31 Chemistry Comments Urine Specimen Description Cln catch midstream Urine Color Yellow Urine Clarity Clear Urine pH 6.5 Urine Specific [place] 1.010 Urine Protein Negative Urine Glucose (UA) Negative Urine Ketones Negative Urine Occult Blood Trace-intact Urine Nitrite Negative Urine Bilirubin Negative Urine Urobilinogen 0.2 Urine Leukocyte Esterase Negative Volume Urine Centrifuged 10 ml Urine Comment Medical Decision Making Additional info obtained from: old records Findings Based on the exam and visualized evidence of patient's stools he had blood streaking in his stool and i'm highly suspecting internal hemorrhoids. Describes some preparation H for discomfort and swelling patient's was hemodynamically stable, laboratories were reassuring Diff Dx GI Bleed:Consideration: Include: AE fistula, Angiodysplasia, Bleeding diathesis, Blood loss anemia, Carcinoma, Diverticulosis, Diverticulitis, Esophageal varicies, Esophagitis, Gastritis, Gastroenteritis, Inflammatory BD, Danni-Anand syndrome, Meckel's diverticulum, PUD, Other Departure Disposition: 01 HOME / SELF CARE / HOMELESS Impression: Primary Impression: Bleeding internal hemorrhoids Discharge Instructions: Hemorrhoids, [id number] Referrals: NO PRIMARY CARE PROVIDER (PCP) Prescriptions Phenyleph/Pramoxin/Glycr/W.pet (Preparation H Cream) 0.25 %-1 % Cream.gm. 1 APPLIC TOP Q12H for 30 Days, #51 GM 0 Refills Prov: FADY HERNANDEZ NP 05/05/25 Education Educated: Patient Signature Scribe Signature: t Attestation: Scribed for Fady [place] [employer] Director by Fady Calixto NP . 05/05/25 09:24 FADY HERNANDEZ NP May 05, 2025 09:10
[2025-05-05] MEDS ORDERED: LOPE2CAP PO (09:18)
[2025-05-05] MEDS ORDERED: SCOP1PAT11 (09:18)
[2025-05-05] MEDS ORDERED: CETI10TA19 PO (09:18)
[2025-05-05] MEDS ORDERED: [UNRECOGNIZED DRUG - CODE] PO (09:18)
[2025-05-05] MEDS ORDERED: ALB0.5UD IH (09:18)
[2025-05-05] MEDS ORDERED: MAGN400O6 PO (09:18)
[2025-05-05 09:29] LABS: MEAN PLATELET VOLUME 9.2 FL (7.4-10.4); RED CELL DISTRIBUTION WIDTH 15.5 % (11.5-14.5)
[2025-05-05 10:07] LABS: CREATININE 0.76 MG/DL (0.60-1.10); TOTAL CARBON DIOXIDE 31.2 MMOL/L (24-32); eCRCL 63 ML/MIN; eGFR > 90 ML/MIN
[2025-05-05 10:18] LABS: LEUKOCYTE ESTERASE ,URINE NEGATIVE (Neg); NITRITES, URINE NEGATIVE (Neg); OCCULT BLOOD,URINE TRACE-INTACT (Neg)
[2025-05-05 10:19] LABS: UA COLLECTION TYPE CLN CATCH MIDSTREAM
[2025-05-05 10:24] LABS: MUCUS STRANDS NONE SEEN /LPF (Neg); SQUAMOUS EPITHELIAL CELL,UR NONE SEEN /LPF (FEW)
[2025-05-05] MEDS ORDERED: PHEN51CR24 TOP (10:25)
[2025-05-05 10:40] VITALS: BP 154/98; PULSE 92; RESP 18; TEMP 97.6; O2SAT 93
== END 2025-05-05 10:42 | disposition home or self-care (01) ==
LOC: ER 08:18
DX: K64.8 Other hemorrhoids (principal); F20.9 Schizophrenia, unspecified; I48.91 Unspecified atrial fibrillation
CPT/HCPCS: 36415; 80053; 81001; 83690; 85025; 99284; A6590

== ENCOUNTER 2025-07-08 09:30 | Inpatient (IN) | payer MEDICARE, MEDICAID ==
[~2025-07-08] VITALS: Ht 162.6 cm; Wt 54.0 kg
[~2025-07-08 09:30] MED LIST changes: +ALB0.5UD IH; +CETI10TA19 PO; +LOPE2CAP PO; +MAGN400O6 PO; +PHEN51CR24 TOP; -POLY119P2 PO; +SCOP1PAT11 TD; +[UNRECOGNIZED DRUG - CODE] PO
--- NOTE | 2025-07-08 09:57 | RADIOLOGY REPORT ---
CHEST RADIOGRAPH Indication: sob Technique: Single frontal view of the chest was obtained COMPARISON: CT CT CHEST W/ IV CONTRAST on DOS: 11/25/24, DI CHEST,SINGLE VIEW on DOS: 09/07/24, DI CHES T,SINGLE VIEW on DOS: 03/24/24, DI CHEST,SINGLE VIEW on DOS: 03/01/24, DI CHEST,SINGLE VIEW on DOS: FINDINGS: Lines and Tubes: None Lungs: Congestion Pleura: No effusion. No pneumothorax. Cardiomediastinal contours: Unremarkable Bones: Thoracolumbar spinal fixation hardware. IMPRESSION: Increased interstital prominence. This may represent pulmonary vascular congestion and/or viral pneum onia. Clinical correlation advised.
[2025-07-08 10:39] LABS: MEAN PLATELET VOLUME 9.7 FL (7.4-10.4); RED CELL DISTRIBUTION WIDTH 14.9 % (11.5-14.5)
[2025-07-08 10:50] LABS: CREATININE 0.71 MG/DL (0.60-1.10); PRO BRAIN NATRIURETIC PEPTIDE 85 PG/ML (0-125); TOTAL CARBON DIOXIDE 27.4 MMOL/L (24-32); eCRCL 69 ML/MIN; eGFR > 90 ML/MIN
--- NOTE | 2025-07-08 11:18 | Physician Documentation ---
History of Present Illness General Chief Complaint: Shortness of Breath Stated Complaint: POSS ASIPIRATION Time Seen by MD: 11:12 Primary Medical Doctor: Isidro Bach History of Present Illness Initial Comments The patient is a 64-year-old man with a history of severe cerebral palsy, intellectual development (nonverbal), history of COPD, atrial fibrillation (on Eliquis at home), schizophrenia, seizure disorder, malnutrition (BMI 13), anemia, thoracolumbar spine deformity treated with hardware. History obtained from patient's nurse, Morris, as patient is nonverbal. The patient has been having greater difficulty swallowing over the past few weeks and although his caregivers have reduced his liquid diet to smaller volumes they feel he may have aspirated yesterday. He is not on supplemental oxygen at baseline. His caregiver noted an oxygen saturation of 84% this morning. Medication Reconciliation Allergies: Coded Allergies: No Known Allergies (Unverified , 07/08/25) Scheduled Amox Tr/Potassium Clavulanate 875/125 MG (Augmentin 875/125 MG), 1 TAB PO BID Apixaban (Eliquis), 1 TAB PO BID, (Reported) Baclofen (Baclofen), 1 TAB PO BID, (Reported) Cetirizine HCl (Cetirizine HCl), 1 TAB PO HS, (Reported) Lactulose (Lactulose), 30 ML PO Q12H Levetiracetam (Keppra), 10 ML PO Q12H, (Reported) Magnesium Hydroxide (Milk of Magnesia), 5 ML PO Q12H, (Reported) Mirtazapine (Remeron), 1 TAB PO HS, (Reported) Phenyleph/Pramoxin/Glycr/W.pet (Preparation H Cream), 1 APPLIC TOP Q12H Saccharomyces Boulardii (Florastor), 1 CAP PO Q12H Scheduled PRN Albuterol Sulfate Nebs* (Proventil Nebs*), 2.5 MG IH Q6H PRN for SOB or wheezing, (Reported) Miscellaneous Medications Guaifenesin/D-Methorphan Hb (Tussin Dm Max Liquid), 20 ML PO, (Reported) Loperamide Hcl (Loperamide), 2 MG PO, (Reported) Potassium Chloride (Potassium Chloride), 20 MEQ PO, (Reported) Scopolamine Hydrobromide (Transderm-Scop), (Reported) [meqestrol], 40 MG PO, (Reported) Past Medical History 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 Constitutional: General: Patient is awake, alert, oriented x 4 in no acute distress and well appearing. Speech is clear and lucid. Appearance: Normal appearance. Patient is not ill-appearing, toxic-appearing or diaphoretic. HENT: Head: Normocephalic and atraumatic. Mouth/Throat: Mouth: Mucous membranes are moist. Pharynx: Oropharynx is clear. Eyes: General: No scleral icterus. Extraocular Movements: Extraocular movements intact. Pupils: Pupils are equal, round, and reactive to light. Neck: Supple, no Kernig or Brudzinski sign. Cardiovascular: Rate and Rhythm: Normal rate and regular rhythm. Heart sounds: No murmur heard. Pulmonary: Effort: No respiratory distress. Breath sounds: Bilateral rhonchi Abdominal: General: There is no distension. Palpations: There is no fluid wave, hepatomegaly or mass. Tenderness: There is no abdominal tenderness. There is no guarding. Musculoskeletal: General: No swelling or deformity. Skin: Coloration: Skin is not jaundiced. Findings: No erythema or rash. Neurological: Mental Status: Patient is alert. Progress Results/Orders Results/Orders Orders - KATHI ELIZALDE MD Covid19 Binax Poc Result Entry (07/08/25 11:28) Culture Blood (07/08/25 11:31) Piperacillin/Tazo 3.375gm/50ml (Zosyn 3. (07/08/25 20:00) Piperacillin/Tazo 3.375gm/50ml (Zosyn 3. (07/08/25 12:30) Page Hospitalist (07/08/25 12:53) Completed Orders - KATHI ELIZALDE MD CMP (07/08/25 11:28) MG (07/08/25 11:28) Hs Troponin I W Calculations (07/08/25 11:28) C-Reactive Protein (07/08/25 11:28) Electrocardiogram (07/08/25 ) Lacticsepsis (07/08/25 11:31) Normal Saline 1000ml (0.9% Sodium Chlori (07/08/25 11:35) Medications Received in ER Medications (Trade) Dose Ordered Sig/Dennis Route PRN Reason Start Time Stop Time Status Last Admin Dose Admin Sodium Chloride 1,000 ml @ 1,000 mls/hr ONCE ONCE IV 07/08/25 11:35 07/08/25 12:34 DC 07/08/25 12:43 1,000 MLS/HR Piperacillin/ Tazobactam/ Dextrose 50 ml @ 12.5 mls/hr ONCE ONCE IV 07/08/25 12:30 07/08/25 16:29 07/08/25 12:42 12.5 MLS/HR Vital Signs 07/08/25 07/08/25 07/08/25 07/08/25 09:34 10:03 10:05 12:30 Temp 97.9 Pulse 139 140 Resp 28 13 B/P (MAP) 125/74 Pulse Ox 86 86 86 O2 Delivery Room Air* O2 Flow Rate 0 FiO2 N/A 07/08/25 12:42 Temp 97.9 Pulse 112 Resp 18 B/P (MAP) 129/87 (101) Pulse Ox 96 O2 Flow Rate 0 FiO2 N/A Laboratory Tests Test 07/08/25 10:00 07/08/25 12:10 07/08/25 12:18 White Blood Count 18.0 H Red Blood Count 4.12 L Hemoglobin 12.3 L Hematocrit 37.5 L Mean Corpuscular Volume 91.0 Mean Corpuscular Hemoglobin 29.9 Mean Corpuscular Hemoglobin Concent 32.8 L Red Cell Distribution Width 14.9 H Platelet Count 259 Mean Platelet Volume 9.7 Neutrophils (%) (Auto) 84.8 H Lymphocytes (%) (Auto) 7.9 L Monocytes (%) (Auto) 6.5 Eosinophils (%) (Auto) 0.7 Basophils (%) (Auto) 0.1 Neutrophils # (Auto) 15.3 H Lymphocytes # (Auto) 1.4 Monocytes # (Auto) 1.2 H Eosinophils # (Auto) 0.1 Basophils # (Auto) 0.0 CBC Comment Sodium Level 141 Potassium Level 4.1 Chloride Level 108 H Carbon Dioxide Level 25.9 Anion Gap 7 L Blood Urea Nitrogen 24 H Creatinine 0.76 Estimated GFR/1.73 m2 > 90 BUN/Creatinine Ratio 31.6 H Glucose Level 128 H Calcium Level 9.3 Magnesium Level 2.4 Total Bilirubin 0.4 Aspartate Amino Transf (AST/SGOT) 26 Alanine Aminotransferase (ALT/SGPT) 30 Alkaline Phosphatase 60 C-Reactive Protein 19.42 H Pro-B-Type Natriuretic Peptide 85 Total Protein 7.6 Albumin 3.1 L Globulin 4.5 H Albumin/Globulin Ratio 0.7 L Chemistry Comments Troponin I High Sensitivity 16 Lactic Acid Level 1.0 Medical Decision Making Findings Patient meet sepsis criteria. Given his history and findings it is likely he has aspiration pneumonia. He currently requires supplemental oxygen to maintain a satisfactory saturation. EKG medically necessary in the evaluation of sepsis/aspiration and interpreted by me at the time of patient evaluation. Rhythm is sinus tachycardia with a rate of 126. Impression: Borderline EKG. ECG reading does not show any acute signs of obvious ischemia. No evidence of A- V block. No short OH, delta waves, or wide QRS concerning for Unabj-Ldbzgilhz-Csofl. No long QT events on my read. I do not see evidence of Brugada with ST elevations in V1 through V3. No epsilon wave noted. No low voltage suggestive of pericardial effusion. No right ventricular strain pattern. Departure Disposition: ADMITTED INPATIENT Admitted to Inpatient Unit: to hospitalist Admission Level of Care: Med/Surg with Tele Impression: Primary Impression: Sepsis Additional Impressions: Aspiration into airway Hypoxemia Condition: Fair Referrals: NO PRIMARY CARE PROVIDER (PCP) Signature Scribe Signature: . Attestation: . KATHI ELIZALDE MD Jul 08, 2025 11:18
--- NOTE | 2025-07-08 11:41 | ELECTROCARDIOGRAPH REPORT ---
[facility] Test Date: 2025-07-08 Test Time: 11:38:52 Pat Name: AZAR JUSTIN Department: [facility]- Patient ID: [facility]-[id number] Room: [place] [id number] Gender: M Patient Services Coordinator: : 1960 Requested By: KATHI ELIZALDE Order Number: [id number] Reading MD: Dr. Gonzalo Aleman Measurements Intervals [place] Rate: 126 P: 64 OK: 122 QRS: 47 QRSD: 68 T: 72 QT: 290 QTc: 420 Interpretive Statements Sinus tachycardia Probable left atrial enlargement Baseline wander in lead(s) III Electronically Signed On 07-17-2025 18:47:[address] Gonzalo Aleman Please click the below link to view image of tracing.
[2025-07-08] MEDS: piperacillin/tazo 3.375gm/50ml 50 ML IV ONE (12:42)
[2025-07-08] MEDS: piperacillin/tazo 3.375gm/50ml 50 ML IV SCH ×2 (12:43→20:42)
[2025-07-08] MEDS: normal saline 1000ml 1,000 ML IV ONE ×3 (12:43→14:45)
[2025-07-08 12:45] LABS: CREATININE 0.76 MG/DL (0.60-1.10); TOTAL CARBON DIOXIDE 25.9 MMOL/L (24-32); eCRCL 64 ML/MIN; eGFR > 90 ML/MIN
[2025-07-08] MEDS ORDERED: ondansetron/PF 4mg/2ml inj IV PRN (13:15)
[2025-07-08] MEDS ORDERED: magnesium hydroxide 30ml (MOM) UD suspension PO PRN (13:15)
[2025-07-08] MEDS ORDERED: mag hydrox/Alum hydrox/simeth 30ml oral suspension PO PRN (13:15)
[2025-07-08] MEDS ORDERED: magnesium sulf-water 4G/100mL 100 ML IV PRN (13:15)
[2025-07-08] MEDS ORDERED: magnesium sulf-water 2g/50mL 50 ML IV PRN (13:15)
[2025-07-08] MEDS ORDERED: potassium Cl 20 mEq SR tablet PO PRN ×2 (13:15)
[2025-07-08] MEDS: azithromycin/NS 500mg/250ml 250 ML IV ONE (14:00)
[2025-07-08 14:17] VITALS: PULSE 109; RESP 24; O2SAT 95
[2025-07-08 14:20] LABS: ABG BASE EXCESS -4.3 mmol/L (-2.0-3.0); ABG HCO3 19.7 mmol/L (21.0-28.0); ABG OXYGEN SATURATION 89.0 % (94.0-98.0); ABG PCO2 (T) 33.3 mmHg (35.0-48.0); ABG PH (T) 7.392 (7.350-7.450); ABG PO2 (T) 65.1 mmHg (83.0-108.0); ALLEN'S TEST POSITIVE; FCOHb 0.3 % (0.5-1.5); FHHb 10.9 % (0.0-5.0); FIO2 21.0 mmHg/%; FMetHb 0.3 % (0.0-1.5); FO2Hb 88.5 % (94.0-98.0); MODE ROOM AIR; PATIENT TEMPERATURE 37.4; TOTAL HEMOGLOBIN 12.2 G/dl (13.5-17.5)
[2025-07-08] MEDS: ipratropium/albuterol 3ml nebule NEB PRN (14:24)
[2025-07-08 14:30] VITALS: PULSE 109; RESP 24; O2SAT 90
[2025-07-08 14:37] VITALS: PULSE 112; RESP 24
[2025-07-08] MEDS: LidoCAINE 2% Topical Jelly 11mL syringe (UROJET) TOP ONE (15:00)
--- NOTE | 2025-07-08 15:00 | HISTORY AND PHYSICAL ---
History & Physical Providers to CC ~ History of Present Illness Reason for Admit\Complaint: Acute hypoxic respiratory failure, sepsis, pneumonia History of Present Illness John Little is a 64-year-old male with past medical history of atrial fibrillation, schizophrenia, cerebral infarction, aphasia, cerebral palsy, seizure disorder, COPD not on home oxygen, developmental delay who was brought to the ED from assisted living facility accompanied by his nurse due to concerns for an episode of aspiration followed by cough x 2 days and hypoxia with oxygen saturation in mid 80s today. Due to patient's condition, most history was taken from medical records provided by assisted living facility and his nurse who was present at bedside. Patient does not have prior NV/CAD, DVT/PE, or GIB. Patient is to be admitted for further workups and treatment. Allergies: Coded Allergies: No Known Allergies (Unverified , 07/08/25) Home Medications Home Medications Active Preparation H Cream (Phenyleph/Pramoxin/Glycr/W.pet) 0.25 %-1 % Cream.gm. 1 Applic TOP Q12H 30 Days Lactulose 10 Gram/15 Ml Solution 30 Ml PO Q12H Florastor (Saccharomyces Boulardii) 250 Mg Capsule 1 Cap PO Q12H 10 Days Augmentin 875/125 MG (Amoxicillin/Clavulanate Potassium) 875 Mg-125 Mg Tablet 1 Tab PO BID Reported Tussin Dm Max Liquid (Guaifenesin/D-Methorphan Hb) 200 Mg-10 Mg/5 Ml Liquid 20 Ml PO Milk of Magnesia (Magnesium Hydroxide) 400 Mg/5 Ml Oral.susp 5 Ml PO Q12H 7 Days Loperamide (Loperamide Hcl) 2 Mg Capsule 2 Mg PO Cetirizine HCl 10 Mg Tab.chew 1 Tab PO HS 30 Days Proventil Nebs* (Albuterol) 2.5 Mg/0.5 Ml Vial.neb 2.5 Mg IH Q6H PRN Transderm-Scop (Scopolamine Hydrobromide) 1 Mg/3 Day Patch.td72 [meqestrol] 40 Mg PO Potassium Chloride 40 Meq/15 Ml Liquid 20 Meq PO Remeron (Mirtazapine) 30 Mg Tab.rapdis 1 Tab PO HS Keppra (Levetiracetam) 100 Mg/Ml Solution 10 Ml PO Q12H 30 Days Eliquis (Apixaban) 5 Mg Tablet 1 Tab PO BID Baclofen 10 Mg Tablet 1 Tab PO BID Past Medical History Past Medical History Atrial fibrillation Cerebral palsy Quadriplegia cerebral infarction Aphasia Schizophrenia Developmental delay Cataracts GERD FTT Past Surgical History Surgical History Comment Noncontributory Family History Family History: Patient reports no known family medical history. Past Social History Social History Comment Alcohol: No Tobacco: No Illicit drug use: No Living situation: Lives at assisted living facility ROS ROS Other than positives in HPI, all 14 review of systems are negative Exam Vitals: Vital Signs Date Time Temp Pulse Resp B/P (MAP) Pulse Ox O2 Delivery O2 Flow Rate FiO2 07/08/25 14:37 112 24 Room Air 0.0 07/08/25 14:30 90 21 07/08/25 12:42 97.9 129/87 (101) General: Generalized weakness, awake, nonverbal, not oriented, NAD HEENT: Normocephalic, PERRLA Neck: Supple, trachea midline, no JVD Chest: Clear to auscultation bilaterally Cardiovascular: Tachycardic Abdomen: Soft and nontender Extremities: No cyanosis/clubbing/or edema Central Nervous System: Quadriplegic Musculoskeletal: Flaccid, Quadriplegic Skin: Warm and intact Diagnostic Data Last Recorded Lab Results: 07/08/25 1000 07/08/25 1000 Additional Plan Assessment & Plan Aspiration pneumonia, covering for Gram-positive and Gram-negative Acute hypoxic respiratory failure 2/2 PNA Sepsis 2/2 PNA FTT -leukocytosis, elevated procal, elevated d-dimer, EKG sinus at 126bpm, no ST elevation/depression -lactic acid wnl, bicarb wnl, Well's score 3, on home Eliquis, CTPA not able to be done due to movement and patient not being able to follow commands including holding breath -bolus fluids followed by continuous fluids, abx, supplemental oxygen, bronchodilators, BSS, aspiration precaution -follow blood cx, UA, sputum cx, venous US, CT chest Atrial fibrillation Cerebral palsy Quadriplegia cerebral infarction Aphasia Schizophrenia Developmental delay Cataracts GERD -PPI, continue home Eliquis, pending med rec DVT/VTE prophylaxis: Heparin Code status: DNR/DNI, POLST form personally reviewed by me Date of Service: Jul 08, 2025 Billing Provider: JOEL LOZOYA Common Visit Codes: [id number] INP/OBS CARE (HIGH) JOEL LOZOYA QUALITY ASSURANCE/R&D LAB TECHNICIAN Jul 08, 2025 15:00
[2025-07-08] MEDS: normal saline 1000ml 1,000 ML IV SCH (18:44)
[2025-07-08 19:25] LABS: LEUKOCYTE ESTERASE ,URINE MODERATE (Neg); NITRITES, URINE NEGATIVE (Neg); OCCULT BLOOD,URINE SMALL (Neg)
[2025-07-08 19:30] VITALS: PULSE 107; RESP 18; O2SAT 93
[2025-07-08] MEDS: diazepam inj 5 MG/ML inj. IV ONE (19:30)
[2025-07-08 19:48] LABS: UA COLLECTION TYPE NON-SPECIFIED
[2025-07-08 19:52] LABS: MUCUS STRANDS FEW /LPF (Neg); SQUAMOUS EPITHELIAL CELL,UR MODERATE /LPF (FEW)
[2025-07-08] MEDS: K and/or MAG REPLACEMENT MC SCH (20:00)
--- NOTE | 2025-07-08 20:31 | RADIOLOGY REPORT ---
EXAM: CT CT CHEST History: PNA, SEPSIS Comparison Study: CT CT CHEST W/ IV CONTRAST on DOS: 11/25/24, CT CTA CHEST PE on DOS: 02/14/24, CT CTA CHEST PE on DOS: 08/05/23 TECHNIQUE: Multidetector CT of the chest was performed. Imaging was performed without IV contrast. Ax ial, coronal, and sagittal multiplanar reformats were obtained from the axial data set by the technol ogrosalio. Radiation Dose : CTDI vol 16.46 mGy, DLP 569.41 mGy*cm. Findings: Evaluation is degraded by respiratory motion. Evaluation is also degraded by streak artifact. Lungs: There is mild debris within the trachea. There is scattered mucoid impaction most pronounced within the lower lobes. There is bronchial wall thickening. Dense opacities are seen throughout the lungs, most pronounced within the posterior aspect of the left upper lobe and within the right lower lobe. There is interlobular septal thickening most pronounced at the lung apices. Pleura: Unremarkable Heart/Great vessels: No cardiomegaly or pericardial effusion. The ascending aorta measures up to 4.0 cm. Mild atherosclerotic calcifications. Mediastinum: Borderline mediastinal nodes. Soft tissues/Bones: Thoracic spinal hardware is noted. Chronic bilateral rib fracture deformities. Upper abdomen: The partially visualized upper abdomen is within normal limits. Impression: 1. Findings as above suggesting infectious/ inflammatory process, with aspiration pneumonia highly soler spected. 2. Additional findings as detailed.
[2025-07-08] MEDS: docusate sod 100mg capsule PO SCH (20:43)
[2025-07-08 21:20] VITALS: BP 145/86; PULSE 112; RESP 16; TEMP 98.3; O2SAT 93
[2025-07-08] MEDS ORDERED: QUET50TA24 PO (21:25)
[2025-07-08] MEDS ORDERED: LACT10SO66 (21:25)
[2025-07-08] MEDS ORDERED: MIRT-88 PO (21:25)
[2025-07-08] MEDS ORDERED: LISI10TA27 PO (21:25)
[2025-07-08] MEDS ORDERED: LEVETIRACETAM (21:25)
[2025-07-08 22:00] VITALS: RESP 16; O2SAT 93
[2025-07-09 04:28] LABS: MEAN PLATELET VOLUME 8.9 FL (7.4-10.4); RED CELL DISTRIBUTION WIDTH 15.1 % (11.5-14.5)
[2025-07-09 04:50] LABS: CREATININE 0.71 MG/DL (0.60-1.10); TOTAL CARBON DIOXIDE 22.8 MMOL/L (24-32); eCRCL 69 ML/MIN; eGFR > 90 ML/MIN
[2025-07-09] MEDS ORDERED: CefTRIAXone 2gm/D5W 50ml BAG 50 ML IV SCH (08:00)
[2025-07-09] MEDS: azithromycin/NS 500mg/250ml 250 ML IV SCH (08:00)
[2025-07-09 08:24] VITALS: PULSE 101; RESP 20; O2SAT 93
[2025-07-09 10:00] VITALS: BP 133/82; PULSE 73; RESP 16; TEMP 97.8; O2SAT 90
--- NOTE | 2025-07-09 16:02 | VASCULAR REPORT ---
BILATERAL LOWER EXTREMITY VENOUS DUPLEX REASON FOR EXAMINATION: Shortness of breath. Elevated D-dimer. COMPARISON: None TECHNIQUE: Using real-time freeze-frame technique with a high-frequency transducer, multiple longitudinal and transverse sections were obtained. Simultaneous color flow and spectral Doppler imaging was performed. FINDINGS: Study limited due to patient contracted position and constant movement. No intraluminal filling defect is identified in the deep veins. Normal venous compressibility is seen and there is flow augmentation. Color flow Doppler imaging is unremarkable. The posterior tibial veins and peroneal veins are not seen due to the patient's permanently contracted position. IMPRESSION: Limited study due to patient contracted position and constant movement. The posterior tibial and peroneal veins are not seen due to the patient's contracted position and constant movement. Within the limitations of the exam, there is no evidence of deep venous thrombosis.
[2025-07-09 18:00] VITALS: BP 149/80; PULSE 65; RESP 13; TEMP 97.2; O2SAT 96
--- NOTE | 2025-07-09 19:27 | PROGRESS NOTE ---
Daily Progress Note Providers to CC ~ Antibiotic Timeout Antibiotic Ordered?: Yes Subjective Patient is seen in his room signs of cerebral palsy present unable to provide me any history cooperative during physical exam. Objective Vital Signs Date Time Temp Pulse Resp B/P (MAP) Pulse Ox O2 Delivery O2 Flow Rate FiO2 07/09/25 18:30 62 07/09/25 10:00 97.8 16 133/82 (99) 90 Room Air 07/09/25 08:24 0 21 Result Diagram: 07/09/25 0414 07/09/254 General-patient not in any acute distress, awake chronically ill-appearing HEENT-atraumatic normocephalic, neck supple without elevated JVD, no thyromegaly or carotid bruit. No lymphadenopathy bilaterally. Eyes-no icterus or pallor seen in eyes Chest-clear to auscultation bilaterally, breathing nonlabored no tachypnea, no wheezing, no crepitation, no crackles. Heart-S1-S2 normal, regular heart rate no murmur Abdomen bowel sounds positive on auscultation, soft nondistended nontender no guarding, no rigidity Skin no active skin rash Neurology-grossly intact, nonfocal awake, signs of developmental delay present Extremity- no pedal edema able to move all 4 extremities Coagulation Studies Laboratory Tests Test 07/08/25 10:00 D-Dimer 1.65 MG/L FEU (0-0.50) H D-Dimer Comment Problem\Assessment\Plan Aspiration pneumonia, covering for Gram-positive and Gram-negative Acute hypoxic respiratory failure 2/2 PNA Sepsis 2/2 PNA FTT -leukocytosis, elevated procal, elevated d-dimer, EKG sinus at 126bpm, no ST elevation/depression -lactic acid wnl, bicarb wnl, Well's score 3, on home Eliquis, CTPA not able to be done due to movement and patient not being able to follow commands including holding breath -bolus fluids followed by continuous fluids, abx, supplemental oxygen, bronchodilators, BSS, aspiration precaution -will follow blood cx, UA, sputum cx, venous US, CT chest Atrial fibrillation Cerebral palsy Quadriplegia cerebral infarction Aphasia Schizophrenia Developmental delay Cataracts GERD -PPI, continue home Eliquis, pending med rec DVT/VTE prophylaxis: Heparin Code status: DNR/DNI, Patient's current condition is guarded we will continue to follow patient in AM . Date of Service: Jul 09, 2025 Billing Provider: MAGUI BOURGEOIS MD Common Visit Codes: [id number] INP/OBS CARE(HIGH) MAGUI BOURGEOIS MD Jul 09, 2025 19:27
[2025-07-09 20:05] VITALS: PULSE 91; RESP 20; O2SAT 89
[2025-07-09 20:40] VITALS: RESP 16; O2SAT 98
[2025-07-10] VITALS (7 sets, daily range): BP systolic 139–159; BP diastolic 72–89; PULSE 61–89; RESP 10–18; TEMP 97.6–99.3; O2SAT 90–97
[2025-07-10 06:23] LABS: MEAN PLATELET VOLUME 9.9 FL (7.4-10.4); RED CELL DISTRIBUTION WIDTH 14.7 % (11.5-14.5)
[2025-07-10 06:39] LABS: CREATININE 0.57 MG/DL (0.60-1.10); TOTAL CARBON DIOXIDE 21.1 MMOL/L (24-32)
[2025-07-10 06:40] LABS: eCRCL 86 ML/MIN; eGFR > 90 ML/MIN
--- NOTE | 2025-07-10 19:58 | PROGRESS NOTE ---
Daily Progress Note Providers to CC ~ Antibiotic Timeout Antibiotic Ordered?: Yes Subjective Patient was seen in presence of nursing staff Karma. Patient lung sounds clear saturating well likely discharge in a.m. we will communicate this with case management coordinator in a.m. Objective Vital Signs Date Time Temp Pulse Resp B/P (MAP) Pulse Ox O2 Delivery O2 Flow Rate FiO2 07/10/25 10:00 71 10 157/72 (100) 94 Room Air 07/10/25 06:00 98.2 07/09/25 20:05 0 21 Result Diagram: 07/10/25 0550 07/10/25 0550 General-patient not in any acute distress, awake chronically ill-appearing HEENT-atraumatic normocephalic, neck supple without elevated JVD, no thyromegaly or carotid bruit. No lymphadenopathy bilaterally. Eyes-no icterus or pallor seen in eyes Chest-clear to auscultation bilaterally, breathing nonlabored no tachypnea, no wheezing, no crepitation, no crackles. Heart-S1-S2 normal, regular heart rate no murmur Abdomen bowel sounds positive on auscultation, soft nondistended nontender no guarding, no rigidity Skin no active skin rash Neurology-grossly intact, nonfocal awake, signs of developmental delay present Extremity- no pedal edema able to move all 4 extremities Coagulation Studies Laboratory Tests Test 07/08/25 10:00 D-Dimer 1.65 MG/L FEU (0-0.50) H D-Dimer Comment Problem\Assessment\Plan Aspiration pneumonia, covering for Gram-positive and Gram-negative Acute hypoxic respiratory failure 2/2 PNA Sepsis 2/2 PNA FTT -leukocytosis, elevated procal, elevated d-dimer, EKG sinus at 126bpm, no ST elevation/depression -lactic acid wnl, bicarb wnl, Well's score 3, on home Eliquis, CTPA not able to be done due to movement and patient not being able to follow commands including holding breath -bolus fluids followed by continuous fluids, abx, supplemental oxygen, bronchodilators, BSS, aspiration precaution -will follow blood cx, UA, sputum cx, venous US, CT chest Atrial fibrillation Cerebral palsy Quadriplegia cerebral infarction Aphasia Schizophrenia Developmental delay Cataracts GERD -PPI, continue home Eliquis, DVT/VTE prophylaxis: Heparin Code status: DNR/DNI, Patient's current condition is guarded we will continue to follow patient in AM . Home medication reconciliation tried but only able to review the medication unable to continue the medication in med rec. Pharmacy and nursing staff needs to work on medication reconciliation. Date of Service: Jul 10, 2025 Billing Provider: MAGUI BOURGEOIS MD Common Visit Codes: [id number] INP/OBS CARE(HIGH) MAGUI BOURGEOIS MD Jul 10, 2025 19:58
[2025-07-10] MEDS: levetiracetam 100mg/ml oral solution 5ml UD cup PO SCH (20:00)
[2025-07-10] MEDS: magnesium hydroxide 30ml (MOM) UD suspension PO SCH (20:00)
[2025-07-10] MEDS: non-formulary drug (Mirtazapine (Remeron) 1 TAB) PO SCH (20:37)
[2025-07-10] MEDS: enoxaparin 40mg/0.4ml syringe SUBCUT SCH (21:46)
[2025-07-11] VITALS (7 sets, daily range): BP systolic 131–174; BP diastolic 83–93; PULSE 63–95; RESP 16–18; TEMP 98–99.9; O2SAT 93–97
[2025-07-11 05:36] LABS: MEAN PLATELET VOLUME 9.9 FL (7.4-10.4); RED CELL DISTRIBUTION WIDTH 14.1 % (11.5-14.5)
[2025-07-11 05:53] LABS: TOTAL CARBON DIOXIDE 22.4 MMOL/L (24-32)
[2025-07-11 05:54] LABS: CREATININE 0.44 MG/DL (0.60-1.10); eCRCL 111 ML/MIN; eGFR > 90 ML/MIN
[2025-07-11] MEDS: dextrose 50%-water 50ml dispensing syringe IV ONE (06:00)
[2025-07-11] MEDS ORDERED: glucagon, human recombinant 1mg kit SUBCUT PRN (06:00)
[2025-07-11] MEDS ORDERED: dextrose 50%-water 50ml dispensing syringe IV PRN (06:00)
[2025-07-11] MEDS ORDERED: DEXTROSE 15 GM of carb/4 tabs (each vial/BOTTLE has 4 tablets) PO PRN ×2 (06:00)
[2025-07-11] MEDS: dextrose 50%-water 50ml dispensing syringe IV PRN (06:03)
[2025-07-11] MEDS: pantoprazole 40mg Tablet.DR PO SCH (07:20)
[2025-07-11] MEDS: potassium Cl 40MEQ/1/2NS 520ml 520 ML IV PRN (13:13)
[2025-07-11] MEDS ORDERED: magnesium Cl slow-release 64mg tablet PO PRN (14:20)
[2025-07-11] MEDS ORDERED: magnesium sulf-water 2g/50mL 50 ML IV PRN (14:20)
[2025-07-11] MEDS ORDERED: magnesium sulf-water 4G/100mL 100 ML IV PRN (14:20)
[2025-07-11] MEDS ORDERED: potassium Cl 20 mEq SR tablet PO PRN ×2 (14:50)
[2025-07-11 15:56] LABS: CREATININE 0.42 MG/DL (0.60-1.10); PHOSPHORUS 2.6 MG/DL (2.3-4.5); TOTAL CARBON DIOXIDE 25.2 MMOL/L (24-32); eCRCL 116 ML/MIN; eGFR > 90 ML/MIN
[2025-07-11] MEDS: FAT EMUL/SOY/MCT/OLIV/FISH OIL (SMOF) 100 ML IV SCH (20:18)
[2025-07-11] MEDS: ZINC/COPPER/MANGANESE/SELENIUM 1 ML, chromic chloride inj. 10 MCG, MVI, adult No.4 with... IV SCH (20:24)
--- NOTE | 2025-07-11 20:54 | PROGRESS NOTE ---
Daily Progress Note Providers to CC ~ Antibiotic Timeout Antibiotic Ordered?: Yes Subjective Patient is seen in his room patient looks comfortable but currently NPO due to aspiration pneumonia. Failed bedside swallowing study. Patient is started on PPN today. bilingual account manager Dee we will contact patient's family member for possible PEG tube placement if needed Objective Vital Signs Date Time Temp Pulse Resp B/P (MAP) Pulse Ox O2 Delivery O2 Flow Rate FiO2 07/11/25 10:00 99.9 75 16 146/83 (104) 95 Room Air 07/11/25 07:49 0 21 Result Diagram: 07/11/25 0454 07/11/25 1459 General-patient not in any acute distress, awake chronically ill-appearing HEENT-atraumatic normocephalic, neck supple without elevated JVD, no thyromegaly or carotid bruit. No lymphadenopathy bilaterally. Eyes-no icterus or pallor seen in eyes Chest-clear to auscultation bilaterally, breathing nonlabored no tachypnea, no wheezing, no crepitation, no crackles. Heart-S1-S2 normal, regular heart rate no murmur Abdomen bowel sounds positive on auscultation, soft nondistended nontender no guarding, no rigidity Skin no active skin rash Neurology-grossly intact, nonfocal awake, signs of developmental delay present Extremity- no pedal edema able to move all 4 extremities Coagulation Studies Laboratory Tests Test 07/08/25 10:00 D-Dimer 1.65 MG/L FEU (0-0.50) H D-Dimer Comment Problem\Assessment\Plan Aspiration pneumonia, covering for Gram-positive and Gram-negative Acute hypoxic respiratory failure 2/2 PNA Sepsis 2/2 PNA FTT -leukocytosis, elevated procal, elevated d-dimer, EKG sinus at 126bpm, no ST elevation/depression -lactic acid wnl, bicarb wnl, Well's score 3, on home Eliquis, CTPA not able to be done due to movement and patient not being able to follow commands including holding breath -bolus fluids followed by continuous fluids, abx, supplemental oxygen, bronchodilators, BSS, aspiration precaution -will follow blood cx, UA, sputum cx, venous US, CT chest Atrial fibrillation Cerebral palsy Quadriplegia cerebral infarction Aphasia Schizophrenia Developmental delay Cataracts GERD -PPI, continue home Eliquis, DVT/VTE prophylaxis: Heparin Code status: DNR/DNI, Patient's current condition is guarded we will continue to follow patient in AM . Failed bedside swallowing study. Patient is started on PPN today. bilingual account manager Dee we will contact patient's family member for possible PEG tube placement if needed Date of Service: Jul 11, 2025 Billing Provider: MAGUI BOURGEOIS MD Common Visit Codes: [id number] INP/OBS CARE(HIGH) MAGUI BOURGEOIS MD Jul 11, 2025 20:54
[2025-07-11] MEDS: levetiracetam-NACL1000mg/100ml 100 ML IV ONE (23:21)
[2025-07-12] VITALS (10 sets, daily range): BP systolic 140–161; BP diastolic 83–98; PULSE 77–129; RESP 14–22; TEMP 97.7–98.7; O2SAT 90–98
[2025-07-12 05:58] LABS: MEAN PLATELET VOLUME 9.1 FL (7.4-10.4); RED CELL DISTRIBUTION WIDTH 14.1 % (11.5-14.5)
[2025-07-12 06:14] LABS: CREATININE 0.39 MG/DL (0.60-1.10); PHOSPHORUS 2.8 MG/DL (2.3-4.5); TOTAL CARBON DIOXIDE 29.6 MMOL/L (24-32); eCRCL 125 ML/MIN; eGFR > 90 ML/MIN
[2025-07-12 07:09] LABS: LYMPHOCYTES % (MANUAL) 17.0 % (21-51); MONOCYTES % (MANUAL) 10.0 % (2-12); NEUTROPHILS % (MANUAL) 73.0 % (42-75); PLATELET ESTIMATE NORMAL
[2025-07-12] MEDS: levetiracetam inj 750 MG in normal saline 100ml IV soln 100 ML IV SCH (08:24)
[2025-07-12] MEDS: potassium Cl 40MEQ/1/2NS 520ml 520 ML IV PRN (11:43)
[2025-07-12] MEDS ORDERED: normal saline 500ml IV soln 500 ML IV PRN (14:20)
[2025-07-12] MEDS: hydrALAZINE 20mg/ml inj. IV PRN (17:47)
--- NOTE | 2025-07-12 20:30 | PROGRESS NOTE ---
Daily Progress Note Providers to CC ~ Antibiotic Timeout Antibiotic Ordered?: Yes Subjective Patient is currently started on PPN clinically stable. We will communicate with conservator in a.m. regarding need for PEG tube. Objective Vital Signs Date Time Temp Pulse Resp B/P (MAP) Pulse Ox O2 Delivery O2 Flow Rate FiO2 07/12/25 17:49 97.7 77 14 160/98 (118) 91 Room Air 07/12/25 07:55 0 21 Result Diagram: 07/12/2531 07/12/25 0531 General-patient not in any acute distress, awake chronically ill-appearing HEENT-atraumatic normocephalic, neck supple without elevated JVD, no thyromegaly or carotid bruit. No lymphadenopathy bilaterally. Eyes-no icterus or pallor seen in eyes Chest-clear to auscultation bilaterally, breathing nonlabored no tachypnea, no wheezing, no crepitation, no crackles. Heart-S1-S2 normal, regular heart rate no murmur Abdomen bowel sounds positive on auscultation, soft nondistended nontender no guarding, no rigidity Skin no active skin rash Neurology-grossly intact, nonfocal awake, signs of developmental delay present Extremity- no pedal edema able to move all 4 extremities Coagulation Studies Laboratory Tests Test 07/08/25 10:00 D-Dimer 1.65 MG/L FEU (0-0.50) H D-Dimer Comment Problem\Assessment\Plan Aspiration pneumonia, covering for Gram-positive and Gram-negative Acute hypoxic respiratory failure 2/2 PNA Sepsis 2/2 PNA FTT -leukocytosis, elevated procal, elevated d-dimer, EKG sinus at 126bpm, no ST elevation/depression -lactic acid wnl, bicarb wnl, Well's score 3, on home Eliquis, CTPA not able to be done due to movement and patient not being able to follow commands including holding breath -bolus fluids followed by continuous fluids, abx, supplemental oxygen, bronchodilators, BSS, aspiration precaution -will follow blood cx, UA, sputum cx, venous US, CT chest Atrial fibrillation Cerebral palsy Quadriplegia cerebral infarction Aphasia Schizophrenia Developmental delay Cataracts GERD -PPI, continue home Eliquis, DVT/VTE prophylaxis: Heparin Code status: DNR/DNI, Patient's current condition is guarded we will continue to follow patient in AM . Failed bedside swallowing study. Patient is started on PPN today. alteration manager Dee we will contact patient's family member for possible PEG tube placement if needed Date of Service: Jul 12, 2025 Billing Provider: MAGUI BOURGEOIS MD Common Visit Codes: [id number] INP/OBS CARE(HIGH) MAGUI BOURGEOIS MD Jul 12, 2025 20:30
[2025-07-13] VITALS (9 sets, daily range): BP systolic 121–140; BP diastolic 69–81; PULSE 72–107; RESP 14–21; TEMP 97.3–100.1; O2SAT 90–94
[2025-07-13 06:04] LABS: MEAN PLATELET VOLUME 9.4 FL (7.4-10.4); RED CELL DISTRIBUTION WIDTH 14.6 % (11.5-14.5)
[2025-07-13 06:49] LABS: CREATININE 0.39 MG/DL (0.60-1.10); PHOSPHORUS 3.4 MG/DL (2.3-4.5); TOTAL CARBON DIOXIDE 27.6 MMOL/L (24-32); eCRCL 125 ML/MIN; eGFR > 90 ML/MIN
[2025-07-13] MEDS: albuterol 2.5 MG/3 ML nebule NEB PRN (15:11)
--- NOTE | 2025-07-13 19:16 | PROGRESS NOTE ---
Daily Progress Note Providers to CC ~ Antibiotic Timeout Antibiotic Ordered?: Yes Subjective Patient failed swallowing studies currently on PPN. We will repeat the swallowing studies again. I spoke to patient's conservator Dalila ) around 1:40 p.m. today. Patient's conservator lives in [facility]. In case patient is unable to resume feeding options discussed on phone which include either palliative care or hospice or PEG tube placement. Ms. Conner we will think about it and get back with the us. digital marketing manager Bailee's phone number provided to the Dalila. Objective Vital Signs Date Time Temp Pulse Resp B/P (MAP) Pulse Ox O2 Delivery O2 Flow Rate FiO2 07/13/25 15:13 96 20 Room Air 0.0 07/13/25 15:12 94 21 07/13/25 06:00 100.1 140/69 (92) Result Diagram: 07/13/25 0445 07/13/25 0445 General-patient not in any acute distress, awake chronically ill-appearing HEENT-atraumatic normocephalic, neck supple without elevated JVD, no thyromegaly or carotid bruit. No lymphadenopathy bilaterally. Eyes-no icterus or pallor seen in eyes Chest-clear to auscultation bilaterally, breathing nonlabored no tachypnea, no wheezing, no crepitation, no crackles. Heart-S1-S2 normal, regular heart rate no murmur Abdomen bowel sounds positive on auscultation, soft nondistended nontender no guarding, no rigidity Skin no active skin rash Neurology-grossly intact, nonfocal awake, signs of developmental delay present Extremity- no pedal edema able to move all 4 extremities Coagulation Studies Laboratory Tests Test 07/08/25 10:00 D-Dimer 1.65 MG/L FEU (0-0.50) H D-Dimer Comment Problem\Assessment\Plan Aspiration pneumonia, covering for Gram-positive and Gram-negative Acute hypoxic respiratory failure 2/2 PNA Sepsis 2/2 PNA FTT -leukocytosis, elevated procal, elevated d-dimer, EKG sinus at 126bpm, no ST elevation/depression -lactic acid wnl, bicarb wnl, Well's score 3, on home Eliquis, CTPA not able to be done due to movement and patient not being able to follow commands including holding breath -bolus fluids followed by continuous fluids, abx, supplemental oxygen, bronchodilators, BSS, aspiration precaution -will follow blood cx, UA, sputum cx, venous US, CT chest Atrial fibrillation Cerebral palsy Quadriplegia cerebral infarction Aphasia Schizophrenia Developmental delay Cataracts GERD -PPI, continue home Eliquis, DVT/VTE prophylaxis: Heparin Code status: DNR/DNI, Patient's current condition is guarded we will continue to follow patient in AM . Failed bedside swallowing study. Patient is started on PPN . We will repeat the swallowing studies again. I spoke to patient's conservator Dalila ) around 1:40 p.m. today. Patient's conservator lives in [facility]. In case patient is unable to resume feeding options discussed on phone which include either palliative care or hospice or PEG tube placement. Ms. Conner we will think about it and get back with the us. digital marketing manager Bailee's phone number provided to the Dalila. Date of Service: Jul 13, 2025 Billing Provider: MAGUI BOURGEOIS MD Common Visit Codes: [id number] INP/OBS CARE(HIGH) MAGUI BOURGEOIS MD Jul 13, 2025 19:16
[2025-07-14] VITALS (10 sets, daily range): BP systolic 124–148; BP diastolic 62–90; PULSE 83–101; RESP 15–21; TEMP 97.3–98.7; O2SAT 89–96
[2025-07-14 07:09] LABS: PHOSPHORUS 3.7 MG/DL (2.3-4.5)
[2025-07-14 09:41] LABS: CREATININE 0.50 MG/DL (0.60-1.10); TOTAL CARBON DIOXIDE 24.3 MMOL/L (24-32); eCRCL 119 ML/MIN; eGFR > 90 ML/MIN
[2025-07-14 09:42] LABS: MEAN PLATELET VOLUME 9.3 FL (7.4-10.4); RED CELL DISTRIBUTION WIDTH 14.8 % (11.5-14.5)
[2025-07-14 10:01] LABS: BANDS% (MANUAL) 1.0 % (0-10); EOSINOPHILS % (MANUAL) 10.0 % (0-6); LYMPHOCYTES % (MANUAL) 34.0 % (21-51); METAMYLEOCYTES% (MANUAL) 2.0 % (0-0); MONOCYTES % (MANUAL) 17.0 % (2-12); MYELOCYTES % (MANUAL) 1.0 % (0-0); NEUTROPHILS % (MANUAL) 35.0 % (42-75); PLATELET ESTIMATE NORMAL
--- NOTE | 2025-07-14 18:47 | PROGRESS NOTE ---
Daily Progress Note Providers to CC ~ Antibiotic Timeout Antibiotic Ordered?: Yes Subjective Patient is seen and examined in visit today. Patient is currently on PPN. manager pet Tail we will contact Dalila patient's POA for possible placement of PEG tube . Objective Vital Signs Date Time Temp Pulse Resp B/P (MAP) Pulse Ox O2 Delivery O2 Flow Rate FiO2 07/14/25 15:35 96 20 Room Air 0.0 07/14/25 15:34 95 21 07/14/25 10:13 97.3 141/90 (107) Result Diagram: 07/14/25 0629 07/14/25 0532 General-patient not in any acute distress, awake chronically ill-appearing HEENT-atraumatic normocephalic, neck supple without elevated JVD, no thyromegaly or carotid bruit. No lymphadenopathy bilaterally. Eyes-no icterus or pallor seen in eyes Chest-clear to auscultation bilaterally, breathing nonlabored no tachypnea, no wheezing, no crepitation, no crackles. Heart-S1-S2 normal, regular heart rate no murmur Abdomen bowel sounds positive on auscultation, soft nondistended nontender no guarding, no rigidity Skin no active skin rash Neurology-grossly intact, nonfocal awake, signs of developmental delay present Extremity- no pedal edema able to move all 4 extremities Coagulation Studies Laboratory Tests Test 07/08/25 10:00 D-Dimer 1.65 MG/L FEU (0-0.50) H D-Dimer Comment Problem\Assessment\Plan Aspiration pneumonia, covering for Gram-positive and Gram-negative Acute hypoxic respiratory failure 2/2 PNA Sepsis 2/2 PNA FTT -leukocytosis, elevated procal, elevated d-dimer, EKG sinus at 126bpm, no ST elevation/depression -lactic acid wnl, bicarb wnl, Well's score 3, on home Eliquis, CTPA not able to be done due to movement and patient not being able to follow commands including holding breath -bolus fluids followed by continuous fluids, abx, supplemental oxygen, bronchodilators, BSS, aspiration precaution -will follow blood cx, UA, sputum cx, venous US, CT chest Atrial fibrillation Cerebral palsy Quadriplegia cerebral infarction Aphasia Schizophrenia Developmental delay Cataracts GERD -PPI, continue home Eliquis, DVT/VTE prophylaxis: Heparin Code status: DNR/DNI, Patient's current condition is guarded we will continue to follow patient in AM . Failed bedside swallowing study. Patient is started on PPN . We will repeat the swallowing studies again. I spoke to patient's conservator Dalila ) around 1:40 p.m. today. Patient's conservator lives in [facility]. In case patient is unable to resume feeding options discussed on phone which include either palliative care or hospice or PEG tube placement. Ms. Conner we will think about it and get back with the us. manager pet Bailee's phone number provided to the Dalila. Date of Service: Jul 14, 2025 Billing Provider: MAGUI BOURGEOIS MD Common Visit Codes: [id number] INP/OBS CARE(HIGH) MAGUI BOURGEOIS MD Jul 14, 2025 18:47
[2025-07-15] VITALS (8 sets, daily range): BP systolic 114–144; BP diastolic 72–88; PULSE 76–109; RESP 15–20; TEMP 97.6–99; O2SAT 91–97
[2025-07-15 06:17] LABS: CREATININE 0.50 MG/DL (0.60-1.10); PHOSPHORUS 4.0 MG/DL (2.3-4.5); TOTAL CARBON DIOXIDE 25.0 MMOL/L (24-32); eCRCL 117 ML/MIN; eGFR > 90 ML/MIN
[2025-07-15 12:00] LABS: CREATININE 0.41 MG/DL (0.60-1.10); TOTAL CARBON DIOXIDE 24.0 MMOL/L (24-32); eCRCL 143 ML/MIN; eGFR > 90 ML/MIN
[2025-07-15 13:22] LABS: MEAN PLATELET VOLUME 8.9 FL (7.4-10.4); RED CELL DISTRIBUTION WIDTH 14.3 % (11.5-14.5)
--- NOTE | 2025-07-15 19:27 | PROGRESS NOTE ---
Daily Progress Note Providers to CC ~ Antibiotic Timeout Antibiotic Ordered?: Yes Subjective Patient was seen by speech therapist today and they recommended pureed diet with honey-thick liquids. Patient was seen and examined clinically stable. We will continue strict aspiration precautions Objective Vital Signs Date Time Temp Pulse Resp B/P (MAP) Pulse Ox O2 Delivery O2 Flow Rate FiO2 07/15/25 15:50 109 18 95 Room Air* 0 21 07/15/25 10:00 99.0 114/72 (86) Result Diagram: 07/15/25 1250 07/15/25 1046 General-patient not in any acute distress, awake chronically ill-appearing HEENT-atraumatic normocephalic, neck supple without elevated JVD, no thyromegaly or carotid bruit. No lymphadenopathy bilaterally. Eyes-no icterus or pallor seen in eyes Chest-clear to auscultation bilaterally, breathing nonlabored no tachypnea, no wheezing, no crepitation, no crackles. Heart-S1-S2 normal, regular heart rate no murmur Abdomen bowel sounds positive on auscultation, soft nondistended nontender no guarding, no rigidity Skin no active skin rash Neurology-grossly intact, nonfocal awake, signs of developmental delay present Extremity- no pedal edema able to move all 4 extremities Coagulation Studies Laboratory Tests Test 07/08/25 10:00 D-Dimer 1.65 MG/L FEU (0-0.50) H D-Dimer Comment Problem\Assessment\Plan Aspiration pneumonia, covering for Gram-positive and Gram-negative Acute hypoxic respiratory failure 2/2 PNA Sepsis 2/2 PNA FTT -leukocytosis, elevated procal, elevated d-dimer, EKG sinus at 126bpm, no ST elevation/depression -lactic acid wnl, bicarb wnl, Well's score 3, on home Eliquis, CTPA not able to be done due to movement and patient not being able to follow commands including holding breath -bolus fluids followed by continuous fluids, abx, supplemental oxygen, bronchodilators, BSS, aspiration precaution -will follow blood cx, UA, sputum cx, venous US, CT chest Patient was seen by speech therapist today and they recommended pureed diet with honey-thick liquids. Atrial fibrillation Cerebral palsy Quadriplegia cerebral infarction Aphasia Schizophrenia Developmental delay Cataracts GERD -PPI, continue home Eliquis, DVT/VTE prophylaxis: Heparin Code status: DNR/DNI, Patient's current condition is guarded we will continue to follow patient in AM . Failed bedside swallowing study. Patient is started on PPN . We will repeat the swallowing studies again. I spoke to patient's conservator Dalila ) around 1:40 p.m. today. Patient's conservator lives in [facility]. In case patient is unable to resume feeding options discussed on phone which include either palliative care or hospice or PEG tube placement. Ms. Conner we will think about it and get back with the us. manager of community relations Bailee's phone number provided to the Dalila. Date of Service: Jul 15, 2025 Billing Provider: MAGUI BOURGEOIS MD Common Visit Codes: [id number] INP/OBS CARE(HIGH) MAGUI BOURGEOIS MD Jul 15, 2025 19:27
[2025-07-16 06:00] VITALS: BP 135/79; PULSE 95; RESP 14; TEMP 97.4; O2SAT 94
[2025-07-16 08:00] VITALS: RESP 16; O2SAT 93
[2025-07-16 09:49] VITALS: PULSE 110; RESP 16; O2SAT 93
[2025-07-16 10:00] VITALS: BP 106/67; PULSE 108; RESP 15; TEMP 97; O2SAT 97
[2025-07-16] MEDS ORDERED: LEVO-65 PO (11:33)
--- NOTE | 2025-07-16 17:22 | DISCHARGE SUMMARY ---
Discharge Summary Providers to CC ~ Discharge Summary Admission Diagnosis: Hypoxic respiratory failure, pneumonia, sepsis Hospital Course DATE OF ADMISSION: July 08, 2025 DATE OF DISCHARGE:July 16, 2025 CBC testing done on July 15, 2025 WBC 7.2 hemoglobin 12.9 hematocrit 39.1 platelet count 327, sed rate 74. Procalcitonin 0.05 done on July 15, 2025. BNP done on July 15, 2025 sodium 136 potassium 4.2 creatinine 0.41 GFR 90. Blood culture showed no growth after five days urine culture showed mixed denzel. Discharge Diagnosis\\Comment: Aspiration pneumonia, covering for Gram-positive and Gram-negative Acute hypoxic respiratory failure 2/2 aspiration PNA Sepsis 2/2 aspiration PNA FTT Atrial fibrillation Cerebral palsy Quadriplegia cerebral infarction Aphasia Schizophrenia Developmental delay Cataracts GERD Operations\\Procedures: None Consultants: None Complications: None Condition on DC: Stable New Medications: Levofloxacin (Levofloxacin) 500 Mg Tablet 500 MG PO DAILY for 5 Days, #5 TAB Continued Medications: Albuterol Sulfate Nebs* (Proventil Nebs*) 2.5 Mg/0.5 Ml Vial.neb 2.5 MG IH Q6H PRN for SOB or wheezing, EACH Apixaban (Eliquis) 5 Mg Tablet 1 TAB PO BID Baclofen (Baclofen) 10 Mg Tablet 1 TAB PO BID Guaifenesin/D-Methorphan Hb (Tussin Dm Max Liquid) 200 Mg-10 Mg/5 Ml Liquid 20 ML PO, ML Lactulose (Enulose) 10 Gram/15 Ml Solution Levetiracetam (Keppra) 100 Mg/Ml Solution 10 ML PO Q12H for 30 Days, #180 ML 0 Refills Lisinopril (Lisinopril) 10 Mg Tablet 1 TAB PO DAILY Loperamide Hcl (Loperamide) 2 Mg Capsule 2 MG PO for loose stools, CAP Magnesium Hydroxide (Milk of Magnesia) 400 Mg/5 Ml Oral.susp 5 ML PO Q12H for constipation for 7 Days, #70 ML 0 Refills Mirtazapine (Remeron) 30 Mg Tab.rapdis 1 TAB PO HS, TAB 0 Refills Phenyleph/Pramoxin/Glycr/W.pet (Preparation H Cream) 0.25 %-1 % Cream.gm. 1 APPLIC TOP Q12H for 30 Days, #51 GM 0 Refills Quetiapine Fumarate (Quetiapine Fumarate) 50 Mg Tablet Saccharomyces Boulardii (Florastor) 250 Mg Capsule 1 CAP PO Q12H for 10 Days, #20 CAP 0 Refills Scopolamine Hydrobromide (Transderm-Scop) 1 Mg/3 Day Patch.td72 Discontinued Medications: Cetirizine HCl (Cetirizine HCl) 10 Mg Tab.chew 1 TAB PO HS for allergy symptoms for 30 Days, #30 TAB 0 Refills [Levetiracetam] () [meqestrol] () 40 MG PO Mirtazapine (Mirtazapine) 30 Mg Tablet 1 TAB PO HS Potassium Chloride (Potassium Chloride) 40 Meq/15 Ml Liquid 20 MEQ PO Discharge Summary: Per admitting provider's history and physical note" John Little is a 64-year-old male with past medical history of atrial fibrillation, schizophrenia, cerebral infarction, aphasia, cerebral palsy, seizure disorder, COPD not on home oxygen, developmental delay who was brought to the ED from assisted living facility accompanied by his nurse due to concerns for an episode of aspiration followed by cough x 2 days and hypoxia with oxygen saturation in mid 80s today. Due to patient's condition, most history was taken from medical records provided by assisted living facility and his nurse who was present at bedside. Patient does not have prior WI/CAD, DVT/PE, or GIB. Patient is to be admitted for further workups and treatment." During hospitalization patient was treated for Aspiration pneumonia, covering for Gram-positive and Gram-negative Acute hypoxic respiratory failure 2/2 PNA Sepsis 2/2 PNA FTT -leukocytosis, elevated procal, elevated d-dimer, EKG sinus at 126bpm, no ST elevation/depression -lactic acid wnl, bicarb wnl, Well's score 3, on home Eliquis, CTPA not able to be done due to movement and patient not being able to follow commands including holding breath -bolus fluids followed by continuous fluids, abx, supplemental oxygen, bronchodilators, BSS, aspiration precaution -followed blood cx, UA, sputum cx, venous US, CT chest Failed bedside swallowing study. Patient is started on PPN . We will repeat the swallowing studies again. Patient was seen by speech therapist and they recommended pureed diet with honey-thick liquids. Atrial fibrillation Cerebral palsy Quadriplegia cerebral infarction Aphasia Schizophrenia Developmental delay Cataracts GERD -PPI, continue home Eliquis, DVT/VTE prophylaxis: Heparin Code status: DNR/DNI, Patient's current condition is guarded we will continue to follow patient in AM . Failed bedside swallowing study. Patient is started on PPN . We will repeat the swallowing studies again. I spoke to patient's conservator Dalila ) around 1:40 p.m. today. Patient's conservator lives in [facility]. In case patient is unable to resume feeding options discussed on phone which include either palliative care or hospice or PEG tube placement. Ms. Conner we will think about it and get back with the us. trauma program manager Bailee's phone number provided to the Dalila. Patient is feeling better he has been afebrile and getting discharged home in stable condition.Patient was seen by speech therapist and they recommended pureed diet with honey-thick liquids. Patient is seen and examined on the day of discharge. trauma program manager involved in patient's discharge plan. Discharge instructions provided to the patient. Patient needs follow-up with primary care physician in one week. Repeat CBC sed rate procalcitonin BMP in five days with PCP. Strict aspiration precautions needed. Diet as recommended by speech therapist ( pureed diet with honey-thick liquids ) . General-patient not in any acute distress, awake chronically ill-appearing HEENT-atraumatic normocephalic, neck supple without elevated JVD, no thyromegaly or carotid bruit. No lymphadenopathy bilaterally. Eyes-no icterus or pallor seen in eyes Chest-clear to auscultation bilaterally, breathing nonlabored no tachypnea, no wheezing, no crepitation, no crackles. Heart-S1-S2 normal, regular heart rate no murmur Abdomen bowel sounds positive on auscultation, soft nondistended nontender no guarding, no rigidity Skin no active skin rash Neurology-grossly intact, nonfocal awake, signs of developmental delay present Extremity- no pedal edema able to move all 4 extremities *Problems/Diagnosis: (1) Aspiration into airway Status: Acute Total Time Spent on D/C: > 30 Minutes Date of Service: Jul 16, 2025 Billing Provider: MAGUI BOURGEOIS MD Common Visit Codes: [id number] DISCH DAY >30min MAGUI BOURGEOIS MD Jul 16, 2025 17:12
[2025-07-18] MEDS ORDERED: PHEN51CR24 TOP (19:16)
== END 2025-07-16 12:22 | disposition home or self-care (01) | DRG 871 ==
LOC: ER 09:31 → ED HOLD 13:20 → ORTHO 4S 21:30
PROVIDERS: ADMIT Nurse Practitioner Family; ATTEND Nurse Practitioner Family
PROC: BW241ZZ Computerized Tomography (CT Scan) of Chest and Abdomen using Low Osmolar Contrast (ICD-10-PCS; principal; 2025-07-08)
DX: A41.9 Sepsis, unspecified organism (principal); J15.69 Pneumonia due to other Gram-negative bacteria; J69.0 Pneumonitis due to inhalation of food and vomit; J96.01 Acute respiratory failure with hypoxia; J15.9 Unspecified bacterial pneumonia; Z68.1 Body mass index [BMI] 19.9 or less, adult; J44.0 Chronic obstructive pulmonary disease with (acute) lower respiratory infection; G80.8 Other cerebral palsy; K21.9 Gastro-esophageal reflux disease without esophagitis; Z20.822 Contact with and (suspected) exposure to COVID-19; Z66 Do not resuscitate; R62.7 Adult failure to thrive; G40.909 Epilepsy, unspecified, not intractable, without status epilepticus; F20.9 Schizophrenia, unspecified; I48.91 Unspecified atrial fibrillation; Z79.899 Other long term (current) drug therapy; Z86.73 Personal history of transient ischemic attack (TIA), and cerebral infarction without residual deficits
CPT/HCPCS: 36415; 36600; 71045; 71250; 80048; 80053; 81001; 82803; 82948; 83605; 83735; 83880; 84100; 84134; 84145; 84478; 84484; 85007; 85018; 85025; 85379; 85651; 86140; 87040; 87081; 87088; 87811; 92508; 92616; 93005; 93970; 94640; 94760; 96361; 96365; 96367; 96375; 97110; 97161; 97530; 99285; A4340; A4615; A4620; A6258; A6590; C1758; G0378; J0360; J0456; J1650; J1953; J2270; J2470; J2543; J3360; J3480; J3490; J7030; Q9967

== ENCOUNTER 2025-08-08 21:41 | Emergency (ER) | payer MEDICARE, MEDICAID ==
[~2025-08-08] VITALS: Ht 124.5 cm; Wt 41.4 kg
[~2025-08-08 21:41] MED LIST changes: -CETI10TA19 PO; +COR3.125T PO; +EMPA10TA PEG; +FURO-150 PO; +LACT10SO66; -LACT10SO78 PO; +LACT1CAP26 PO; +LINE600T11 PO; +LISI10TA27 PO; -POTA40LI16 PO; +PRED10TA23 PO; +QUET50TA24 PO; -SACC250C PO; +SPIR25TA5 PO; -[UNRECOGNIZED DRUG - OTHER] PO
[2025-08-08] MEDS: LidoCAINE 2% Topical Jelly 11mL syringe (UROJET) TOP ONE (22:19)
--- NOTE | 2025-08-08 22:29 | Physician Documentation ---
History of Present Illness ~ Chief Complaint: G-Tube Problems Stated Complaint: NG TUBE Time Seen by MD: 22:05 Primary Medical Doctor: Isidro Bach HPI 64-year-old male presents to the ED after pulling his G-tube out this evening. The previous device did not come with the patient for replacement. Patient not able to follow commands secondary to CP In the EMS patient pulled out his G-tube around 2030 this evening. It was placed two weeks ago. Patient is also on 2 L at baseline. Has a wet cough Medication Reconciliation Allergies: Coded Allergies: No Known Allergies (Unverified , 08/08/25) Scheduled Amox Tr/Potassium Clavulanate 875/125 MG (Augmentin 875/125 MG), 1 TAB PO BID Apixaban (Eliquis), 1 TAB PO BID, (Reported) Baclofen (Baclofen), 1 TAB PO BID, (Reported) Carvedilol (Carvedilol), 1 TAB PO Q12H Empagliflozin (Jardiance), 10 MG PEG DAILY Furosemide (Lasix), 20 MG PO BID Lactobacillus Rhamnosus (Culturelle), 1 CAP PO BID Levetiracetam (Keppra), 10 ML PO Q12H, (Reported) Linezolid (ZYVOX tablet), 1 TAB PO Q12H Lisinopril (Lisinopril), 1 TAB PO DAILY, (Reported) Magnesium Hydroxide (Milk of Magnesia), 5 ML PO Q12H, (Reported) Mirtazapine (Remeron), 1 TAB PO HS, (Reported) Phenyleph/Pramoxin/Glycr/W.pet (Preparation H Cream), 1 APPLIC TOP Q12H, (Reported) Prednisone (Prednisone), 0 PO DAILY Quetiapine Fumarate (Quetiapine Fumarate), 50 MG PO BID, (Reported) Spironolactone (Spironolactone), 25 MG PO DAILY Scheduled PRN Albuterol Sulfate Nebs* (Proventil Nebs*), 2.5 MG IH Q6H PRN for SOB or wheezing, (Reported) Scopolamine Hydrobromide (Transderm-Scop), 1 PATCH TD Q72H PRN for nausea/vomiting, (Reported) Miscellaneous Medications Guaifenesin/D-Methorphan Hb (Tussin Dm Max Liquid), 20 ML PO, (Reported) Lactulose (Enulose), (Reported) Loperamide Hcl (Loperamide), 2 MG PO, (Reported) Past Medical History Past Medical History: *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 Alcohol Use: None Drug Use: none Lives with: Other Lives In: Assisted Care Occupation: disabled Physical Exam Vital Signs: Temperature: 98.2, Source: Oral, Heart Rate: 110, Respiratory Rate: 18, BP: 99/70, Pulse Oximetry: 97, Weight: 41.400 Oxygen Flow Rate: 2.0 Procedures Procedures Temporary tube was placed via Mulligan catheter with the bulb only half inflated there is a tube in place with a PEG tube until we can replace it appropriate I removed with a Mulligan without difficulty. I then replaced the PEG tube without difficulty. Confirmed via positive gastric content reflux Tube Replacement Tube Replacement : Tubing Replaced: gatrostomy tube Tolerated Procedure Well?: yes, no complications Progress Results/Orders Results/Orders Orders - KENZIE RUDD [employer]ENDENT Culture Blood (08/08/25 22:33) Saline Lock (08/08/25 22:33) Oxygen (08/08/25 22:33) Lacticsepsis (08/08/25 22:33) Chest,Single View (08/08/25 22:30) Abdomen,Single View(Kub) (08/08/25 22:53) Completed Orders - KE[employer]NIE RUDD [employer]ENT Lidocaine 2% Jelly 11ml Syr (Glydo-Lidoc (08/08/25 22:15) Cbc/Diff (08/08/25 22:33) BMP (08/08/25 22:33) PBNP (08/08/25 22:33) Chest,Single View (08/08/25 22:30) Diatr Meglu/Diatr Sod Oral Sheila (Gastrogr (08/08/25 22:55) Medications Received in ER Medications (Trade) Dose Ordered Sig/Dennis Route PRN Reason Start Time Stop Time Status Last Admin Dose Admin (GLYDO-Lidocaine 2% Topical Jelly 11mL syringe) 1 applic ONCE ONCE TOP 08/08/25 22:15 08/08/25 22:16 DC 08/08/25 22:19 1 APPLIC Vital Signs 1008/08/25 08/08/25 21:46 22:19 22:56 Temp 98.2 Pulse 110 122 Resp 18 16 14 B/P (MAP) 99/70 135/96 (109) Pulse Ox 97 97 O2 Flow Rate 2.0 2.0 Laboratory Tests Test 08/08/25 21:56 White Blood Count 8.2 Red Blood Count 4.61 L Hemoglobin 13.5 L Hematocrit 41.4 L Mean Corpuscular Volume 89.8 Mean Corpuscular Hemoglobin 29.2 Mean Corpuscular Hemoglobin Concent 32.5 L Red Cell Distribution Width 14.5 Platelet Count 263 Mean Platelet Volume 9.2 Neutrophils (%) (Auto) 69.9 Lymphocytes (%) (Auto) 19.4 L Monocytes (%) (Auto) 10.2 Eosinophils (%) (Auto) 0.3 Basophils (%) (Auto) 0.2 Neutrophils # (Auto) 5.7 Lymphocytes # (Auto) 1.6 Monocytes # (Auto) 0.8 Eosinophils # (Auto) 0.0 Basophils # (Auto) 0.0 CBC Comment Sodium Level 146 H Potassium Level 4.4 Chloride Level 107 Carbon Dioxide Level 30.9 Anion Gap 8 Blood Urea Nitrogen 28 H Creatinine 0.59 L Estimated GFR/1.73 m2 > 90 BUN/Creatinine Ratio 47.5 H Glucose Level 122 H Calcium Level 8.8 Pro-B-Type Natriuretic Peptide 142 H Albumin 2.6 L Chemistry Comments Medical Decision Making Findings See procedure note PEG tube was replaced without difficulty x-ray did not indicate any signs of opacities or infiltrate which would warrant further investigation into pneumonia s secondary to his ongoing cough Differential Dx:Considerations: Include: Cellulitis, Ostomy site inflammation, Tube dislodgement, Tube malfunction, Other Departure Disposition: HOME / SELF CARE / HOMELESS Impression: Primary Impression: Cough Additional Impression: Gastrostomy tube in place Condition: Stable Referrals: NO PRIMARY CARE PROVIDER (PCP) Signature Scribe Signature: Attestation: Scribed for Kenzie Rudd Baby Formula Worker by Kenzie Rudd - LES . 08/08/25 22:29 KENZIE RUDD [employer]ENT Aug 08, 2025 22:29
[2025-08-08 22:45] LABS: MEAN PLATELET VOLUME 9.2 FL (7.4-10.4); RED CELL DISTRIBUTION WIDTH 14.5 % (11.5-14.5)
--- NOTE | 2025-08-08 22:56 | RADIOLOGY REPORT ---
CLINICAL HISTORY: cough and peg tube TECHNIQUE: Single view of the chest was obtained. COMPARISON: DI CHEST,SINGLE VIEW on DOS: 08/01/25, DI CHEST,SINGLE VIEW on DOS: 08/01/25, DI CHEST,SINGLE VIEW on DOS: 07/31/25, DI CHEST,SINGLE VIEW on DOS: 07/30/25, DI CHEST,SINGLE VIEW on DOS: 07/29/25 FINDINGS: The heart size and pulmonary vasculature are normal. There is thoracolumbar fusion hardware. There is elevation of the right hemidiaphragm with mild right basilar atelectasis. IMPRESSION: NO ACUTE CARDIOPULMONARY PROCESS.
[2025-08-08 23:00] LABS: CREATININE 0.59 MG/DL (0.60-1.10); PRO BRAIN NATRIURETIC PEPTIDE 142 PG/ML (0-125); TOTAL CARBON DIOXIDE 30.9 MMOL/L (24-32); eCRCL 45 ML/MIN; eGFR > 90 ML/MIN
[2025-08-08] MEDS: diatrozoate meglu/diatrozoate sod (37% iodine) 120ML oral solution PO ONE (23:30)
[2025-08-08] MEDS ORDERED: diatr meglu/diatrizoate 30ml oral sol.-(3 dose) bottle ONE (23:41)
--- NOTE | 2025-08-09 00:27 | RADIOLOGY REPORT ---
Exam: DI ABDOMEN,SINGLE VIEW(KUB) Indication: confirm g tub placement Comparison: DI ABDOMEN,SINGLE VIEW(KUB) on DOS: 07/29/25, DI ABDOMEN,SINGLE VIEW(KUB) on DOS: 01/23/25, DI ABDOMEN,SINGLE VIEW(KUB) on DOS: 11/26/24, DI ABDOMEN,SINGLE VIEW(KUB) on DOS: 11/25/24, DI ABDOMEN,SINGLE VIEW(KUB) on DOS: 11/24/24 Technique: 1-view Findings: Enteric tube is not visualized within the upper abdomen or lower chest. Enteric contrast is present within the stomach, duodenum and jejunum. Nonobstructive pattern of imaged bowel loops. The right hemidiaphragm remains elevated. No acute osseous finding. Extensive thoracolumbar spinal hardware. Chronic appearing left lateral rib deformity. Impression: 1. Nonvisualized enteric tube, correlate for placement and recommend repositioning / replacement.
[2025-08-09 01:19] VITALS: O2SAT 97
[2025-08-09 02:15] VITALS: BP 127/89; PULSE 112; RESP 14; TEMP 98.2
== END 2025-08-09 02:18 | disposition home or self-care (01) ==
LOC: ER 21:42
DX: R05.9 Cough, unspecified (principal); Z43.1 Encounter for attention to gastrostomy; I48.91 Unspecified atrial fibrillation; F20.9 Schizophrenia, unspecified; Z79.899 Other long term (current) drug therapy; Z98.890 Other specified postprocedural states
CPT/HCPCS: 36415; 71045; 74018; 80048; 83605; 83880; 85025; 87040; 99284; A6213; Q9963